=== PATIENT | male | born 1945 | race Caucasian/White ===

== ENCOUNTER 2016-12-09 11:37 | Inpatient (IN) | payer MEDICARE, OTHER ==
[2016-12-09] MEDS ORDERED: Sodium Chloride 0.9% 10 ML Syringe FLUSH PRN (11:50)
[2016-12-09] MEDS ORDERED: Sodium Chloride 0.9% 1,000 ML IV ONE (11:51)
--- NOTE | 2016-12-09 11:56 | EDM.PDOC ---
ED HPI GENERAL MEDICAL PROBLEM - General Chief Complaint: Abdominal Pain Stated Complaint: Abdominal Pain; Nausea; Vomiting Time Seen by Provider: 12/09/16 11:47 Source of Information: Reports: Patient, Family, RN, RN Notes Reviewed History Limitations: Reports: No Limitations - History of Present Illness INITIAL COMMENTS - FREE TEXT/NARRATIVE: Patient is brought to the ED at [facility] via POV with complaints of fevers , abdominal pain, N/V that started last evening. According to the patient's , he was complaining of right lower back pain last evening as well. Patient seemed to be very lethargic and less responsive and symptoms seems to get progressively worse since yesterday. Patient states his pain currently is located in the RLQ. Patient is severe with palpation. He denies any diarrhea. Patient states the pain radiates to the left chest region. Patient admits SOB with movement and pain. Right Abdominal Pain Score (Numeric/FACES): 8 - Related Data Allergies Allergy/AdvReac Type Severity Reaction Status Date / Time Penicillins Allergy Anaphylactic Verified 12/09/16 11:53 Shock Home Meds: Home Meds Eszopiclone [Lunesta] 1 mg PO BEDTIME 12/09/16 [History] Losartan/Hydrochlorothiazide [Losartan-HCTZ 100-25 MG] 1 each PO DAILY 12/09/16 [History] Montelukast [Singulair] 10 mg PO ONETIME 12/09/16 [History] Morphine [MS Contin] 15 mg PO BID 12/09/16 [History] Pramipexole [Mirapex] 1 mg PO BID 12/09/16 [History] Primidone [Primidone] 250 mg PO BID 12/09/16 [History] amLODIPine [Norvasc] 2.5 mg PO DAILY 12/09/16 [History] atorvaSTATin [Lipitor] 20 mg PO BEDTIME 12/09/16 [History] metFORMIN HCl [Metformin HCl] 500 mg PO DAILY 12/09/16 [History] oxyCODONE HCl [Oxycodone HCl] 10 mg PO QID PRN 12/09/16 [History] ED ROS GENERAL - Review of Systems Review Of Systems: See Below Constitutional: Reports: Fever, Chills, Weakness, Diaphoresis Respiratory: Reports: Shortness of Breath. Denies: Wheezing, Cough, Sputum Cardiovascular: Reports: Chest Pain (radiating from abdominal pain). Denies: Palpitations GI/Abdominal: Reports: Abdominal Pain, Nausea, Vomiting. Denies: Diarrhea Skin: Reports: Diaphoresis Neurological: Reports: Weakness. Denies: Dizziness, Headache, Numbness, Paresthesia, Tingling ED EXAM, GENERAL - Physical Exam Exam: See Below Exam Limited By: Altered Mental Status General Appearance: No Apparent Distress, Obtunded, Obese Neck: Supple Respiratory/Chest: No Respiratory Distress, Lungs Clear, Decreased Breath Sounds Cardiovascular: Normal Peripheral Pulses, Tachycardia Peripheral Pulses: 2+: Radial (L), Radial (R) GI/Abdominal: Rigid, Rebound, Tender, Abnormal Bowel Sounds (hypoactive X4) Extremities: Slow Capillary Refill, Pallor Neurological: Inattentive, Slow to Respond Skin Exam: Other (cool extremities) EKG INTERPRETATION EKG Date: 12/09/16 Time: 11:44 Rhythm: NSR Rate (Beats/Min): 112 [place]: Normal P-Wave: Present QRS: Normal ST-T: Normal QT: Normal MO/PQ Interval: 0.17 Comparison: NA - No Prior EKG EKG Interpretation Comments: 1. Sinus Tachycardia 2. Pattern consistent with pulmonary disease 3. RVH 4. Inferior IL - probably old Course - Vital Signs Last Recorded V/S: Last Vital Signs Temp 38.5 C H 12/09/16 13:25 Pulse 116 H 12/09/16 13:25 Resp 24 H 12/09/16 13:25 BP 171/103 H 12/09/16 13:25 Pulse Ox 96 12/09/16 13:25 - Orders/Labs/Meds Orders: Active Orders 24 hr Category Date Time Status Admission Status [Patient Status] [ADT] Routine ADT 12/09/16 14:58 Ordered EKG 12 Lead [EKG Documentation Completion] [RC] STAT Care 12/09/16 11:50 Active Insert Roman Catheter [Insert Urinary Catheter] [OM.PC] Care 12/09/16 12:45 Ordered Routine Urinary Catheter Assessment [RC] ASDIRECTED Care 12/09/16 12:39 Active Chest Abdomen Pelvis w Cont [CT] Routine Exams 12/09/16 12:45 Taken CULTURE BLOOD [BC] Stat Lab 12/09/16 12:15 Results CULTURE BLOOD [BC] Stat Lab 12/09/16 12:31 Received OPIATES 9 DRUG CONF LC-MS/MS Stat Lab 12/09/16 12:36 Received PAIN MANAGEMENT TARYN CONFIRM Stat Lab 12/09/16 12:36 Received Levofloxacin/Dextrose 5%-Water [Levaquin in D5W 750 MG/ Med 12/09/16 15:00 Ordered 150 ML] 750 mg Premix Bag 1 bag IV Q24H Sodium Chloride 0.9% [Normal Saline] 1,000 ml Med 12/09/16 14:45 Active IV ASDIRECTED Sodium Chloride 0.9% [Saline Flush] Med 12/09/16 11:50 Active 10 ml FLUSH ASDIRECTED PRN Blood Culture x2 Reflex Set [OM.PC] Stat Oth 12/09/16 11:49 Ordered Peripheral IV Insertion Adult [OM.PC] Routine Oth 12/09/16 11:50 Ordered Medication Orders Sodium Chloride (Normal Saline) 1,000 mls @ 100 mls/hr IV ASDIRECTED SARMAD Last Admin: 12/09/16 14:34 Dose: 100 mls/hr Levofloxacin/Dextrose 750 mg/ (Premix) 150 mls @ 100 mls/hr IV Q24H SARMAD Sodium Chloride (Saline Flush) 10 ml FLUSH ASDIRECTED PRN PRN Reason: Keep Vein Open Labs: Laboratory Tests 12/09/16 12/09/16 12/09/16 Range/Units 12:06 12:15 12:15 WBC 21.6 H* (4.0-10.0) x10^3/uL RBC 5.74 (4.5-6.0) x10^6/uL Hgb 17.1 (14.0-18.0) g/dL Hct 48.3 (40.0-52.0) % MCV 84.1 (78.0-93.0) fL MCH 29.8 (26.0-32.0) pg MCHC 35.4 (32.0-36.0) g/dL RDW Coeff of Andrzej 15.6 H (10.0-15.0) % Plt Count 270 (130-400) x10^3/uL Add Manual Diff Yes Neutrophils % (Manual) 83 H (50-80) % Lymphocytes % (Manual) 8 L (25-50) % Monocytes % (Manual) 9 (2-11) % Toxic Granulation 1+ slight H Platelet Estimate Adequate Anisocytosis Rare Rouleaux Rare POC ABG pH 7.465 H (7.35-7.45) POC ABG pCO2 34 L (35-45) mmHG POC ABG pO2 47 L* (80-105) mmHG POC ABG HCO3 24 (22-26) mmol/L POC ABG Total CO2 25 (23-27) mmol/L POC ABG O2 Sat 86 L (95-98) % POC ABG Base Excess 0 (-2-3) mmol/L POC FiO2 0.21 Sodium 138 (136-145) mmol/L Potassium 3.8 (3.5-5.1) mmol/L Chloride 98 (98-107) mmol/L Carbon Dioxide 30 (21-32) mmol/L BUN 12 (7-18) mg/dL Creatinine 1.2 (0.70-1.30) mg/dL Est Cr Clr Drug Dosing 61.88 mL/min Estimated GFR (MDRD) > 60 Glucose 173 H (74-106) mg/dL Lactic Acid (0.4-2.0) mmol/L Calcium 9.3 (8.5-10.1) mg/dL Corrected Calcium 9.30 (8.5-10.1) mg/dL Total Bilirubin 0.6 (0.2-1.0) mg/dL AST 16 (15-37) U/L ALT 28 (16-63) U/L Alkaline Phosphatase 101 (46-116) U/L Creatine Kinase 106 (39-308) U/L Creatine Kinase Index 2.0 (0.0-4.0) % CK-MB (CK-2) 2.1 (0.0-3.6) ng/mL Troponin I 0.021 (<=0.056) ng/mL C-Reactive Protein 3.0 H (<=0.9) mg/dL Total Protein 8.5 H (6.4-8.2) g/dL Albumin 4.0 (3.4-5.0) g/dL Globulin 4.5 Albumin/Globulin Ratio 0.89 Amylase 26 (25-115) U/L Lipase 115 (73-393) U/L POC Result Comm Called critical res Urine Color (YELLOW) Urine Appearance (CLEAR) Urine pH (5.0-8.0) Ur Specific [place] Urine Protein (NEGATIVE) mg/dL Urine Glucose (UA) (NEGATIVE) mg/dL Urine Ketones (NEGATIVE) mg/dL Urine Occult Blood (NEGATIVE) Urine Nitrite (NEGATIVE) Urine Bilirubin (NEGATIVE) Urine Urobilinogen (0.2) EU/dL Ur Leukocyte Esterase (NEGATIVE) Urine RBC (NOT SEEN) /HPF Urine WBC (NOT SEEN) /HPF Ur Squamous Epith Cells (NEGATIVE) /HPF Urine Bacteria (NEGATIVE) /HPF Urine Mucus (NEGATIVE) /LPF Urine Opiates Screen (NEAGTIVE) Ur Buprenorphine Scrn (NEGATIVE) Ur Oxycodone Screen (NEGATIVE) Urine Methadone Screen (NEGATIVE) Ur Barbiturates Screen (NEGATIVE) Ur Tricyclics Screen (NEGATIVE) Ur Amphetamine Screen (NEGATIVE) U Methamphetamines Scrn (NEGATIVE) Urine MDMA Screen (NEGATIVE) U Benzodiazepines Scrn (NEGATIVE) U Cocaine Metab Screen (NEGATIVE) U Marijuana (THC) Screen (NEGATIVE) 12/09/16 12/09/16 12/09/16 Range/Units 12:15 12:36 12:36 WBC (4.0-10.0) x10^3/uL RBC (4.5-6.0) x10^6/uL Hgb (14.0-18.0) g/dL Hct (40.0-52.0) % MCV (78.0-93.0) fL MCH (26.0-32.0) pg MCHC (32.0-36.0) g/dL RDW Coeff of Andrzej (10.0-15.0) % Plt Count (130-400) x10^3/uL Add Manual Diff Neutrophils % (Manual) (50-80) % Lymphocytes % (Manual) (25-50) % Monocytes % (Manual) (2-11) % Toxic Granulation Platelet Estimate Anisocytosis Rouleaux POC ABG pH (7.35-7.45) POC ABG pCO2 (35-45) mmHG POC ABG pO2 (80-105) mmHG POC ABG HCO3 (22-26) mmol/L POC ABG Total CO2 (23-27) mmol/L POC ABG O2 Sat (95-98) % POC ABG Base Excess (-2-3) mmol/L POC FiO2 Sodium (136-145) mmol/L Potassium (3.5-5.1) mmol/L Chloride (98-107) mmol/L Carbon Dioxide (21-32) mmol/L BUN (7-18) mg/dL Creatinine (0.70-1.30) mg/dL Est Cr Clr Drug Dosing mL/min Estimated GFR (MDRD) Glucose (74-106) mg/dL Lactic Acid 3.1 H (0.4-2.0) mmol/L Calcium (8.5-10.1) mg/dL Corrected Calcium (8.5-10.1) mg/dL Total Bilirubin (0.2-1.0) mg/dL AST (15-37) U/L ALT (16-63) U/L Alkaline Phosphatase (46-116) U/L Creatine Kinase (39-308) U/L Creatine Kinase Index (0.0-4.0) % CK-MB (CK-2) (0.0-3.6) ng/mL Troponin I (<=0.056) ng/mL C-Reactive Protein (<=0.9) mg/dL Total Protein (6.4-8.2) g/dL Albumin (3.4-5.0) g/dL Globulin Albumin/Globulin Ratio Amylase (25-115) U/L Lipase (73-393) U/L POC Result Comm Urine Color Dark yellow H (YELLOW) Urine Appearance Cloudy H (CLEAR) Urine pH 7.0 (5.0-8.0) Ur Specific [place] 1.020 Urine Protein 100 H (NEGATIVE) mg/dL Urine Glucose (UA) Negative (NEGATIVE) mg/dL Urine Ketones Negative (NEGATIVE) mg/dL Urine Occult Blood Small H (NEGATIVE) Urine Nitrite Negative (NEGATIVE) Urine Bilirubin Small H (NEGATIVE) Urine Urobilinogen 1.0 (0.2) EU/dL Ur Leukocyte Esterase Negative (NEGATIVE) Urine RBC 5-10 H (NOT SEEN) /HPF Urine WBC 0-5 (NOT SEEN) /HPF Ur Squamous Epith Cells Rare (NEGATIVE) /HPF Urine Bacteria Not seen (NEGATIVE) /HPF Urine Mucus Moderate H (NEGATIVE) /LPF Urine Opiates Screen Positive H (NEAGTIVE) Ur Buprenorphine Scrn Negative (NEGATIVE) Ur Oxycodone Screen Negative (NEGATIVE) Urine Methadone Screen Negative (NEGATIVE) Ur Barbiturates Screen Positive H (NEGATIVE) Ur Tricyclics Screen Negative (NEGATIVE) Ur Amphetamine Screen Negative (NEGATIVE) U Methamphetamines Scrn Negative (NEGATIVE) Urine MDMA Screen Negative (NEGATIVE) U Benzodiazepines Scrn Negative (NEGATIVE) U Cocaine Metab Screen Negative (NEGATIVE) U Marijuana (THC) Screen Negative (NEGATIVE) Meds: Medications Generic Name Dose Route Start Last Admin Trade Name Freq PRN Reason Stop Dose Admin Sodium Chloride 1,000 mls @ 100 mls/hr 12/09/16 14:45 12/09/16 14:34 Normal Saline IV 100 mls/hr ASDIRECTED SARMAD Administration Levofloxacin/Dextrose 750 mg/ 150 mls @ 100 mls/hr 12/09/16 15:00 Premix IV Q24H SARMAD Sodium Chloride 10 ml 12/09/16 11:50 Saline Flush FLUSH ASDIRECTED PRN Keep Vein Open Discontinued Medications Generic Name Dose Route Start Last Admin Trade Name Freq PRN Reason Stop Dose Admin Sodium Chloride 1,000 mls @ 999 mls/hr 12/09/16 11:51 12/09/16 12:13 Normal Saline IV 12/09/16 12:51 999 mls/hr ONETIME ONE Administration Sodium Chloride 100 mls @ 3 mls/sec 12/09/16 12:51 12/09/16 13:22 Normal Saline IV 12/09/16 12:52 3 mls/sec ONETIME ONE Administration Vancomycin HCl 2 gm/ Sodium 500 mls @ 250 mls/hr 12/09/16 12:58 12/09/16 13: 20 Chloride IV 12/09/16 14:57 250 mls/hr ONETIME ONE Administration Iopamidol 100 ml 12/09/16 12:50 12/09/16 13:21 Isovue-300 (61%) IVPUSH 12/09/16 12:51 100 ml ONETIME ONE Administration - Radiology Interpretation Free Text/Narrative:: 1. Significant distention of gallbladder 2. Question of Cholecystitis 3. No obvious PE 4. Infiltrates posterior segment right upper lobe and basal segment right lower lobe See scanned report in EMR CT Results Date: 12/09/16 CT Results Time: 14:31 Departure - Departure Time of Disposition: 15:05 Disposition: Admitted As Inpatient 68 Condition: Good Clinical Impression: Community acquired pneumonia, Hypoxia, Leukocytosis, Essential hypertension - Discharge Information ED Communication - ED Communication Date/Time Date: 12/09/16 Time Called: 14:47 - Discussed Case With (1) Discussed Case With (1): Admitting Provider Person/s Notified (1): Barbi Milian - Conversation Summary Admitting Provider Agreed to Patient's Admission: Yes - Problem List & Annotations (1) Community acquired pneumonia SNOMED Code(s): 335159923 Code(s): J18.9 - PNEUMONIA, UNSPECIFIED ORGANISM Status: Acute Priority: High Current Visit: Yes (2) Leukocytosis SNOMED Code(s): 042149511, 891518568 Code(s): D72.829 - ELEVATED WHITE BLOOD CELL COUNT, UNSPECIFIED Status: Acute Current Visit: Yes Qualifiers: Leukocytosis type: unspecified Qualified Code(s): D72.829 - Elevated white blood cell count, unspecified (3) Hypoxia SNOMED Code(s): 309016894, 176145961 Code(s): R09.02 - HYPOXEMIA Status: Acute Current Visit: Yes Onset Date : ~12/09/16 (4) Essential hypertension SNOMED Code(s): 14391211 Code(s): I10 - ESSENTIAL (PRIMARY) HYPERTENSION Status: Acute Current Visit: Yes - Problem List Review Problem List Initiated/Reviewed/Updated: Yes - My Orders Last 24 Hours: My Active Orders 12/09/16 11:49 Blood Culture x2 Reflex Set [OM.PC] Stat 12/09/16 11:50 EKG 12 Lead [EKG Documentation Completion] [RC] STAT Sodium Chloride 0.9% [Saline Flush] 10 ml FLUSH ASDIRECTED PRN Peripheral IV Insertion Adult [OM.PC] Routine 12/09/16 12:15 CULTURE BLOOD [BC] Stat 12/09/16 12:31 CULTURE BLOOD [BC] Stat 12/09/16 12:36 OPIATES 9 DRUG CONF LC-MS/MS Stat PAIN MANAGEMENT TARYN CONFIRM Stat 12/09/16 12:39 Urinary Catheter Assessment [RC] ASDIRECTED 12/09/16 12:45 Insert Roman Catheter [Insert Urinary Catheter] [OM.PC] Routine Chest Abdomen Pelvis w Cont [CT] Routine 12/09/16 14:45 Sodium Chloride 0.9% [Normal Saline] 1,000 ml IV ASDIRECTED 12/09/16 14:58 Admission Status [Patient Status] [ADT] Routine 12/09/16 15:00 Levofloxacin/Dextrose 5%-Water [Levaquin in D5W 750 MG/150 ML] 750 mg Premix Bag 1 bag IV Q24H - Assessment/Plan Admission H&P: Please use this note as an admission H&P Last 24 Hours: My Active Orders 12/09/16 11:49 Blood Culture x2 Reflex Set [OM.PC] Stat 12/09/16 11:50 EKG 12 Lead [EKG Documentation Completion] [RC] STAT Sodium Chloride 0.9% [Saline Flush] 10 ml FLUSH ASDIRECTED PRN Peripheral IV Insertion Adult [OM.PC] Routine 12/09/16 12:15 CULTURE BLOOD [BC] Stat 12/09/16 12:31 CULTURE BLOOD [BC] Stat 12/09/16 12:36 OPIATES 9 DRUG CONF LC-MS/MS Stat PAIN MANAGEMENT TARYN CONFIRM Stat 12/09/16 12:39 Urinary Catheter Assessment [RC] ASDIRECTED 12/09/16 12:45 Insert Roman Catheter [Insert Urinary Catheter] [OM.PC] Routine Chest Abdomen Pelvis w Cont [CT] Routine 12/09/16 14:45 Sodium Chloride 0.9% [Normal Saline] 1,000 ml IV ASDIRECTED 12/09/16 14:58 Admission Status [Patient Status] [ADT] Routine 12/09/16 15:00 Levofloxacin/Dextrose 5%-Water [Levaquin in D5W 750 MG/150 ML] 750 mg Premix Bag 1 bag IV Q24H
[2016-12-09] MEDS ORDERED: Iopamidol 612 MG/ML 100 ML Bottle IVPUSH ONE (12:50)
[2016-12-09] MEDS ORDERED: Sodium Chloride 0.9% 100 ML IV ONE (12:51)
[2016-12-09 12:56] LABS: CHLORIDE,CL 98 mmol/L (98-107); SODIUM,NA 138 mmol/L (136-145)
[2016-12-09] MEDS ORDERED: Vancomycin 2 GM in Sodium Chloride 0.9% 500 ML IV ONE (12:58)
[2016-12-09] MEDS: Sodium Chloride 0.9% 1,000 ML IV SCH (14:34)
[2016-12-09] MEDS: Levofloxacin/Dextrose 5%-Water 750 MG in Premix Bag 1 BAG IV SCH (15:50)
[2016-12-09] MEDS ORDERED: Acetaminophen 650 MG Supp RECTAL ONE (15:52)
[2016-12-09] MEDS ORDERED: Metoprolol Tartrate 5 MG/5 ML SDV IVPUSH ONE (15:52)
[2016-12-09] MEDS ORDERED: Promethazine 25 MG Tab PO PRN (15:56)
[2016-12-09] MEDS ORDERED: Promethazine 12.5 MG in Sodium Chloride 0.9% 100 ML IV PRN (15:56)
[2016-12-09] MEDS ORDERED: Pramipexole 0.5 MG Tab PO PRN (16:00)
[2016-12-09] MEDS ORDERED: Zolpidem 5 MG Tab PO PRN (16:00)
[2016-12-09] MEDS ORDERED: oxyCODONE 5 MG Tab PO PRN (16:15)
[2016-12-09] MEDS: metroNIDAZOLE/Normal Saline 500 MG in Premix Bag 1 BAG IV SCH (18:43)
[2016-12-09] MEDS: amLODIPine 2.5 MG Tab PO SCH (18:48)
[2016-12-09] MEDS: Losartan 50 MG Tab PO SCH (18:48)
[2016-12-09] MEDS ORDERED: Morphine 15 MG Tab.ER PO SCH (20:00)
[2016-12-09] MEDS: Insulin Aspart 100 Units/ML 3 ML Pen SUBCUT SCH (21:23)
[2016-12-09] MEDS: Metoprolol Tartrate 5 MG/5 ML SDV IVPUSH PRN (21:35)
--- NOTE | 2016-12-09 21:48 | HP ---
CHIEF COMPLAINT: Incoherent fever, vomiting. HISTORY OF PRESENT ILLNESS: This is a 71-year-old male who is from [place], traveled up here with his to help his daughter with a move. He had been coughing a lot over the past few days. He had been producing more sputum. His states he does normally cough a lot. He is a smoker. He is supposed to be on an inhaler, but they could not afford it. Then last night he began vomiting, he was having some left-sided back pain by his 's report. He has no history of kidney stones. Then this morning, he came to the ER, was found to have a 101.7 temperature. He was eating okay up until this point. This morning, because of the vomiting he did receive 50 mg of Phenergan which he has at home and morphine 15 mg which he is on chronically for back pain. The patient's gives most of the history as he was sleeping. He could wake up and answer simple questions like, do you have any pain, he said no until I began palpating his abdomen. Then he had significant pain, especially in the right upper quadrant. He has never had any abdominal surgeries. He has had pneumonia in the past, like back when he was in the service. His said he also had meningitis back when he was in the service. He is denying any headache today. He has had some neck pain over the last month with pain going into the left arm. PAST MEDICAL HISTORY: Otherwise, his past medical history includes obstructive sleep apnea, but he would not use his CPAP because he got some infections from it; possible coronary artery disease with reports of an angiogram by his a year ago, but she is not sure if any stents were placed; smoking; obesity; diabetes, on oral agents of metformin, it was unknown whether or not he has complications; chronic back pain with previous back surgery; essential hypertension; restless legs syndrome; insomnia. PAST SURGICAL HISTORY: Includes a right hip replacement about a year ago. Since then, he also had a right elbow surgery, sounds like it was for recurrent bursitis. SOCIAL HISTORY: The patient is , he lives in [place] with his . He is retired. He has been smoking pipes lately to get less inhalation. They deny any alcohol use. FAMILY HISTORY: Father of colon cancer. His mother had a stroke. He has a sister who is alive and well. REVIEW OF SYSTEMS: Really unobtainable from the patient. Please see HPI which I obtained the review of systems per his . ALLERGIES: Include penicillin, which is an anaphylactic reaction. MEDICATIONS: Losartan and HCTZ 100/25 one daily, Singulair 10 mg daily, Lipitor 20 mg at bedtime, metformin 500 mg daily, Lunesta 1 mg at bedtime, morphine 15 mg b.i.d., Mirapex 1 mg b.i.d., primidone 250 b.i.d., amlodipine 2.5 daily, oxycodone 10 mg 4 times a day as needed for pain. PHYSICAL EXAMINATION: Vital Signs: His stated weight was 113.3 kg. His temperature was up to 102.3 at 3:20 p.m., pulse 111, blood pressure 186/94, respiratory rate 24, O2 of 94 on 2 L. Initially, he was 86% on room air. General: He is in no acute distress. He is able to wake to loud verbal stimuli or some painful stimuli at times. He is able to answer yes or no. He is able to tell me which arm his neck pain goes into. He is able to tell me he does not have a headache. Heart: Regular rate and rhythm. S1, S2 without murmur. Lungs: Lung sounds are decreased throughout due to poor respiratory effort. I did not appreciate any wheezing. Abdomen: Distended. Significant tenderness in the right upper quadrant. He reports 10/10 pain. There is no rebound or guarding. There is also tenderness in the left lower quadrant. He has hypoactive bowel sounds. Extremities: Warm and dry. There are no rashes. There is no edema. Mental Status: He is alert. He is able to tell me that his is in the room. LABORATORY DATA: Lab work reviewed does show a white count of 21.6, hemoglobin 17.1, platelets 270. pH on ABG 7.46, CO2 of 34, pO2 of 47. Sodium 138, potassium 3.8, chloride 98, bicarb 30, BUN 12, creatinine 1.2, glucose 173. Lactic 3.1. Calcium 9.3. ALT and AST within normal range. CK 2.1. CRP 3. Albumin 4. Lipase normal, 115. UA catheterized specimen showed no leukocytes, but 5 to 10 RBCs. His toxicology was positive for opioids, negative for oxycodone, positive for barbiturates. CT report showed significant distention of the gallbladder, question of cholecystitis. No obvious pulmonary embolism, but infiltrates in the posterior segment of the right upper lobe and basal segment of the right lower lobe. No mention of diverticulitis made. No mention of kidney stones. There was a small amount of free fluid noted around the gallbladder with a slightly thickened wall. There was thickening of the wall of the urinary bladder noted as well. EKG was reviewed. Does show a sinus tachycardia with a probable right ventricular hypertrophy pattern, some question of an inferior myocardial infarction, however, no previous to compare to, just some micro type Q-waves noted in II, III, and aVF. There is some nonspecific ST changes in leads I, V5 and 6, but they are not consistent across all segments. ASSESSMENT AND PLAN: 1. Severe sepsis with fever, tachycardia, elevated lactic acid. Likely source is the pneumonia, multilobar. Other considerations as well as possible cholecystitis. 2. Abdominal pain, likely due to cholecystitis. 3. Diabetes. 4. Obstructive sleep apnea, untreated. 5. Acute hypoxic respiratory failure secondary to pneumonia with possible underlying chronic obstructive pulmonary disease although he is not wheezing currently. 6. Morbid obesity. 7. Somnolence. I think the patient's mentation is affected by his sepsis and fevers. We will give him some Tylenol, give him fluids, try to get his fever under better control. 8. Essential hypertension, poorly controlled. He is unable to take his pills today due to vomiting. We will try to give them to him again, but I will also give him some IV Lopressor 2.5 one time and we will repeat that if needed for systolic blood pressures over 180. 9. Chronic pain, on morphine and oxycodone. We will continue them, but hold if he is overly sedated. 10.Deep venous thrombosis prophylaxis. He will be placed on Lovenox. 11.Neck pain with left arm pain. This has been an ongoing problem as an outpatient. It can be further worked up. However, if severe pain continues, may need to have imaging. Could be another source of infection. The plan at this point: Blood cultures have been done. We will obtain sputum cultures. We are treating for causes of infection. He already got vancomycin in the ER, 2 g. We will schedule 1500 twice daily. I have added Levaquin which will cover for gram negatives for the pneumonia as well as help with the cholecystitis, and I will order IV Flagyl as well. We will keep him on telemetry, continuous pulse oximetry. We will continue oxygen. If needed, I will start nebulizers and steroids, however, at this point I see no indication for that. Discussed with him and his if he were to become hypotensive or worse, we transfer to [place] for ICU care. We will repeat his lactic acid in 6 hours. We will repeat all lab work again in the morning. We will continue him on some IV fluids. We will give him a diabetic diet as tolerated if he is able to eat. We will order a low-dose sliding scale insulin for him as well and hold his metformin. The plan is above. The patient's overall condition is guarded. Discussed with Gold Rice also in the ER if he has any urgent deterioration, we will transfer him to a higher level of care. ROYALA: 12/09/2016 16:46:02 MODL: 12/09/2016 21:42:50 /[id number]
[2016-12-10] MEDS: Primidone 50 MG Tab PO SCH ×3 (00:52→23:56)
[2016-12-10] MEDS: metroNIDAZOLE/Normal Saline 500 MG in Premix Bag 1 BAG IV SCH ×3 (01:00→17:32)
[2016-12-10] MEDS: Metoprolol Tartrate 5 MG/5 ML SDV IVPUSH PRN (02:12)
[2016-12-10] MEDS: HYDROmorphone 1 MG/ML Syringe IVPUSH PRN ×5 (02:53→21:47)
[2016-12-10] MEDS: amLODIPine 2.5 MG Tab PO SCH ×2 (04:30→07:27)
[2016-12-10] MEDS: Losartan 50 MG Tab PO SCH ×2 (04:31→07:26)
[2016-12-10] MEDS: Acetaminophen 500 MG Tab PO PRN ×2 (04:31→12:15)
[2016-12-10] MEDS: Sodium Chloride 0.9% 1,000 ML IV SCH (06:04)
[2016-12-10] MEDS: Insulin Aspart 100 Units/ML 3 ML Pen SUBCUT SCH ×3 (07:52→19:25)
[2016-12-10] MEDS: Enoxaparin 40 MG/0.4 ML Syringe SUBCUT SCH (07:52)
[2016-12-10 08:23] LABS: CHLORIDE,CL 101 mmol/L (98-107); SODIUM,NA 138 mmol/L (136-145)
[2016-12-10] MEDS ORDERED: Metoprolol Succinate 25 MG Tab.ER PO SCH (09:00)
[2016-12-10] MEDS: oxyCODONE ER 10 MG TAB.ER PO SCH ×2 (09:44→20:15)
--- NOTE | 2016-12-10 09:50 | PN ---
Progress Note for MARIANNA KNIGHT Date: 12/10/2016 Room #: VM.215 SUBJECTIVE: This is hospital day #2 for a 71-year-old admitted yesterday with severe sepsis with altered mentation, pneumonia, and cholecystitis. The patient continues to have right upper quadrant pain. He states it is worse when people touch it, otherwise, most of his pain is in his back which he has had for a long time. He has not received his oral morphine here due to concerns for causing more cholecystitis issues. He did receive his dose of IV Dilaudid at about 3:00 a.m. to help with the pain. He otherwise had elevated blood pressures during the night and had received IV Lopressor. When I was called at 4:00 a.m., I gave the okay to give his morning pills early. Blood pressure this morning came down nicely to 148/87. He still remains tachycardic, but he has been eating. He ate some toast. Again, he is in pain. He has been afebrile since after admission, 102.1 was his T-max at 3:20, then he was 100.6 at 4:00 p.m., and other than 99 temperature so far he has not had any major fevers through the night. He is still coughing. He denies feeling short of breath. He denies any neck pain today. He denies any nausea. OBJECTIVE: Vital Signs: His temperature is 98.6; pulse 108; blood pressure again 148/87, but high reading at 8:00 a.m. was 190/104; respiratory rate 16; and O2 is 91% on 2 L. He did drop to 79% during the night while sleeping and was bumped up to 3 L briefly. General: He is in no acute distress, but does appear to have some sweating. He says he is warm. Heart: Regular rate and rhythm. S1, S2 without murmur. Lungs: Sounds are showing good air entry throughout. I was not able to appreciate any crackles on exam. Abdomen: Mildly distended. Positive bowel sounds. There is tenderness noted in the right upper quadrant without rebound or guarding. Lower quadrants are not tender. Mental Status: He is alert. He is aware he is in the hospital. He does not remember which city he is in. I asked him where his daughter worked, he was able to tell me that her works but it was almost like he was not tracking to remember why he was here. His says they came to help the daughter move. Extremities: Warm and dry. No edema. : Roman is in place. There is some dark tinged urine. He did have some slight blood in his UA yesterday, 5-10 rbc's, it was felt may be due to a traumatic catheterization. LABORATORY DATA: Lab work reviewed does show his white count to still be elevated at 20.7, it was 21.6 yesterday. Neutrophils went up from 83 to 88. Hemoglobin 17.4, platelets 226, sodium 138, potassium 3.6, chloride 101, bicarb 27, BUN 9, creatinine 1.1. Glucose 167. Lactic acid was elevated at 3.1 on admission, went down to 1.7 after 6 hours. ALT and AST both normal. Bilirubin normal. Alkaline phosphatase is normal at 84. Albumin went down slightly to 3.3. ASSESSMENT: 1. Severe sepsis secondary to community-acquired pneumonia, multilobar. We are still awaiting a sputum culture. Fevers have improved. He is still tachycardic, which could be due to pain. Leukocytosis is staying about the same so far. 2. Abdominal pain secondary to cholecystitis. Discussed personally with the radiologist. His gallbladder is about 5 x 10 cm, distended, no gallstones noted. There is some concern for acalculous cholecystitis for the patient. We will continue to monitor closely. Overall, his condition seems to be improving. We will try to get an ultrasound tomorrow. If symptoms worsen or if we are unable, we will transfer to [place], which was discussed with his yesterday. 3. Type 2 diabetes with unspecified complications, not on long-term insulin use. Blood sugars seem to be okay. We are holding his metformin. We will give him insulin if needed. 4. Obstructive sleep apnea, probably cause some of the hypoxia overnight. 5. Acute hypoxic respiratory failure secondary to pneumonia. He is stable on 2-3 L of oxygen right now. We will repeat a chest x-ray this morning. 6. Somnolence due to severe sepsis. This seems to be improving. He is mentating better today. We are going to go ahead and take out the Roman. He denies any trouble with BPH or urinary problems. 7. Chronic back pain. His morphine was held. I think some of his symptoms this morning with sweating is related to that. We will switch him over to OxyContin 10 b.i.d. 8. Essential hypertension, poorly controlled. He was given his losartan and amlodipine early this morning. We held off on the hydrochlorothiazide. We will go ahead and schedule oral Toprol doses if needed. For now, he has p.r.n. Lopressor available. 9. Deep nahum thrombosis prophylaxis. He is on Lovenox. 10.Neck and left arm pain. He is denying that today. He has good neck range of motion. PLAN: At this point, the patient will continue acute cares. We will continue the IV vancomycin for coverage of possible Enterococcus given concern for cholecystitis and also for his pneumonia for gram-positive coverage. We will continue IV Levaquin again for both the pneumonia and the cholecystitis and IV Flagyl, which would be for anaerobes for possible cholecystitis. We will repeat all blood work tomorrow. Blood cultures have been done and pending. We will continue to try to get a sputum culture. We will continue him with incentive spirometry. We will remove the Roman. We will get him up in the chair today. He will continue eating on a diabetic diet if he is able. If he is unable to eat or he is vomiting or more severe abdominal pain or condition worsens, we will transfer to [place] as he may require cholecystotomy or cholecystectomy. He is a code level 1. For DVT prophylaxis, he is on Lovenox. MKA: 12/10/2016 09:15:06 MODL: 12/10/2016 09:42:18 /[id number]
[2016-12-10] MEDS: Levofloxacin/Dextrose 5%-Water 750 MG in Premix Bag 1 BAG IV SCH (15:23)
[2016-12-11] MEDS: metroNIDAZOLE/Normal Saline 500 MG in Premix Bag 1 BAG IV SCH ×2 (00:50→07:34)
[2016-12-11 07:32] LABS: CHLORIDE,CL 101 mmol/L (98-107); SODIUM,NA 135 mmol/L (136-145)
[2016-12-11] MEDS: oxyCODONE ER 10 MG TAB.ER PO SCH (07:39)
[2016-12-11] MEDS: Losartan 50 MG Tab PO SCH (07:40)
[2016-12-11] MEDS: amLODIPine 2.5 MG Tab PO SCH (07:40)
[2016-12-11] MEDS: Enoxaparin 40 MG/0.4 ML Syringe SUBCUT SCH (07:41)
[2016-12-11] MEDS: Primidone 50 MG Tab PO SCH (07:42)
[2016-12-11] MEDS: Insulin Aspart 100 Units/ML 3 ML Pen SUBCUT SCH ×2 (07:42→11:22)
[2016-12-11] MEDS ORDERED: NS + KCl 20mEq/L 1,000 ML IV SCH (08:30)
--- NOTE | 2016-12-11 09:28 | PN ---
Progress Note for MARIANNA KNIGHT Date: 12/11/2016 Room #: VM.215 SUBJECTIVE: This is hospital day #3 for a 71-year-old, admitted with a multilobar pneumonia and right upper quadrant pain with cholecystitis. The patient continues to have significant right upper quadrant pain, especially with movement or exam. He did receive IV Dilaudid last evening, but he did receive one of his p.r.n. oxycodone during the night. He tells me he feels drugged. Otherwise, he did not receive any Ambien for sleep. He is not having any trouble breathing, but admits he still has a little bit of a cough. He has been afebrile since yesterday afternoon. He did spike a 101.4 temperature around noon. Otherwise, he continues to be tachycardic with rates in the 110s. He denies any knowledge of tachycardia, but tells me to ask his . Otherwise, white count continues to be elevated. I had discussed the case yesterday with the surgeon. Liver function testing was normal. The CT was reviewed. We will try for ultrasound today, but there were no urgent indications for surgery. OBJECTIVE: Vital Signs: His temperature is 99.4, his pulse 107, blood pressure 123/71, respiratory rate 20, O2 95% on 3 L. General: He is in no acute distress. Heart: Regular rate and rhythm. Lungs: Lung sounds are clear to auscultation with crackles noted in the right base. I had noted them yesterday afternoon, also when he was sitting up more. Abdomen: Distended. He does have positive bowel sounds. There is generalized tenderness, but no guarding. He has the most amount of tenderness in the right upper quadrant going down into the right mid axillary area. Mental Status: He is alert, he is aware he is in the hospital. Extremities: Warm and dry. No edema. LABORATORY DATA: Lab work reviewed. White count remains 20.8, it was 20.7 yesterday; platelets are 250; hemoglobin 16.8. He has 82% neutrophils, which has decreased, 3% bands. Sodium 135, potassium 3.6, chloride 101, bicarb 22, BUN 11, creatinine 1, glucose 168, albumin 3, ALT and AST normal. Alkaline phosphatase 88, bilirubin again 0.9. ASSESSMENT: 1. Severe sepsis secondary to community-acquired pneumonia, multilobar. Sputum cultures have not been obtained, although we have tried. Blood cultures are negative. We will discontinue the vancomycin and keep him on Levaquin. Leukocytosis is staying about the same and he is having still some mild fevers. Repeat x-ray yesterday was showing the right basilar infiltrate. 2. Abdominal pain, secondary to cholecystitis. He is planning on having an ultrasound done today. Depending on how that looks, we may consider transfer for surgery either to [place] or [place]. 3. Type 2 diabetes with unspecified complications, not on long-term insulin use. His metformin is on hold. He is requiring some small doses of insulin, but all blood sugars have been under 200. 4. Obstructive sleep apnea. He is noncompliant with treatment. 5. Acute hypoxic respiratory failure secondary to pneumonia. He continues on 2-3 L of oxygen. 6. Somnolence secondary to severe sepsis, this has resolved. He does feel a little bit drugged from receiving pain medications. We will discontinue the IV Dilaudid. He is eating, so he can take oxycodone. 7. Chronic back pain. I switched his morphine to OxyContin, adjusted dosing 10 b.i.d. due to gallbladder issues. 8. Essential hypertension, now under good control. Hydrochlorothiazide has been on hold. He is on losartan at a lower dose and amlodipine same dose. 9. Deep vein thrombosis prophylaxis, on Lovenox. 10.Neck and left arm pain. He really has not brought this up now since admission. This had been going on for about 4 weeks prior to admission. Also noted, the patient has not been on aspirin. I am going to be obtaining his medical records today from his provider in [place]. Otherwise, he has not had any nausea or vomiting and he is tolerating some diet. PLAN: At this point, the patient will continue acute cares. We will discontinue the IV vancomycin given the negative blood cultures. We will continue the Levaquin and Flagyl, which would cover for both pneumonia and cholecystitis. We will repeat lab work again in the morning with CBC and CMP. We will work on getting an ultrasound today and transferring for surgery if needed. Otherwise, we will continue him on incentive spirometry. We will discontinue the Dilaudid and use oral pain medications. We will have him up and working with therapies. For DVT prophylaxis, he will continue on Lovenox. Code level 1. MKA: 12/11/2016 08:36:33 MODL: 12/11/2016 09:17:45 /[id number]
--- NOTE | 2016-12-11 11:54 | PCM.DCSUM1 ---
Discharge Summary - Hospital Course Free Text/Narrative:: Patient admitted on 12/09 with abdominal pain and back pain. He was obtunded and found to have a fever of over 102 and WBC of 20,000. CT was showing possible cholecysitis. Abdominal pain continued despite broad spectrum ABX with Vanco, Levaquin, and Flagyl. He was also found to have a RUL and right basilar pneumonia by CT with follow up CXR showing the pneumonia but no signficant worsening. He was requiring 3 L of oxygen but sats remained above 90 % except at night although he has untreated sleep apnea. His last fever was 101.4 at noon yesterday. US done today confirmed the choleycstitis with calculus and a 5 x 1.8 cm pericholecystic fluid collection. Discussion was had with the patient and his and transfer was arranged to [facility] at their request with Dr. Tolbert the accepting physician. - Discharge Data Discharge Date: 12/11/16 Discharge Disposition: DC/Tfer to Acute Hospital 02 Condition: Good - Patient Summary/Data Consults: Consultations 12/11/16 08:36 PT Evaluation and Treatment [CONS] Routine - Patient Instructions Diet: NPO - Discharge Plan Home Medications: Home Meds Eszopiclone [Lunesta] 1 mg PO BEDTIME 12/09/16 [History] Losartan/Hydrochlorothiazide [Losartan-HCTZ 100-25 MG] 1 each PO DAILY 12/09/16 [History] Montelukast [Singulair] 10 mg PO ONETIME 12/09/16 [History] Morphine [MS Contin] 15 mg PO BID 12/09/16 [History] Pramipexole [Mirapex] 1 mg PO BID 12/09/16 [History] Primidone [Primidone] 250 mg PO BID 12/09/16 [History] amLODIPine [Norvasc] 2.5 mg PO DAILY 12/09/16 [History] atorvaSTATin [Lipitor] 20 mg PO BEDTIME 12/09/16 [History] metFORMIN HCl [Metformin HCl] 500 mg PO DAILY 12/09/16 [History] oxyCODONE HCl [Oxycodone HCl] 10 mg PO QID PRN 12/09/16 [History] Forms: ED Department Discharge, Interfacility Transfer EMTALA Referrals: PCP,Not In Area [Primary Care Provider] - - Discharge Summary/Plan Comment DC Time >30 min.: Yes Discharge Summary/Plan Comment: To [facility] by Ambulance for possibly cholecystectomy. Accepting surgeon is Dr. Tolbert - Patient Data Vitals - Most Recent: Last Vital Signs Temp 97.8 F 12/11/16 10:00 Pulse 101 H 12/11/16 10:00 Resp 20 12/11/16 10:00 BP 117/73 12/11/16 10:00 Pulse Ox 95 12/11/16 10:00 Weight - Most Recent: 113.398 kg I&O - Last 24 hours: Intake & Output 12/10/16 12/11/16 12/11/16 22:59 06:59 14:59 Intake Total 875 950 240 Output Total 975 1400 Balance -100 -450 240 Lab Results - Last 24 hrs: Laboratory Results - last 24 hr 12/10/16 12/10/16 12/11/16 Range/Units 17:02 20:18 05:54 WBC (4.0-10.0) x10^3/uL RBC (4.5-6.0) x10^6/uL Hgb (14.0-18.0) g/dL Hct (40.0-52.0) % MCV (78.0-93.0) fL MCH (26.0-32.0) pg MCHC (32.0-36.0) g/dL RDW Coeff of Andrzej (10.0-15.0) % Plt Count (130-400) x10^3/uL Add Manual Diff Neutrophils % (Manual) (50-80) % Band Neutrophils % (0-6) % Lymphocytes % (Manual) (25-50) % Platelet Estimate Sodium (136-145) mmol/L Potassium (3.5-5.1) mmol/L Chloride (98-107) mmol/L Carbon Dioxide (21-32) mmol/L BUN (7-18) mg/dL Creatinine (0.70-1.30) mg/dL Est Cr Clr Drug Dosing mL/min Estimated GFR (MDRD) Glucose (74-106) mg/dL POC Glucose 175 H 177 H 168 H (74-106) mg/dL Calcium (8.5-10.1) mg/dL Corrected Calcium (8.5-10.1) mg/dL Total Bilirubin (0.2-1.0) mg/dL AST (15-37) U/L ALT (16-63) U/L Alkaline Phosphatase (46-116) U/L Total Protein (6.4-8.2) g/dL Albumin (3.4-5.0) g/dL Globulin Albumin/Globulin Ratio 12/11/16 12/11/16 12/11/16 Range/Units 06:20 06:20 11:19 WBC 20.8 H* (4.0-10.0) x10^3/uL RBC 5.70 (4.5-6.0) x10^6/uL Hgb 16.8 (14.0-18.0) g/dL Hct 48.3 (40.0-52.0) % MCV 84.7 (78.0-93.0) fL MCH 29.5 (26.0-32.0) pg MCHC 34.8 (32.0-36.0) g/dL RDW Coeff of Andrzej 15.8 H (10.0-15.0) % Plt Count 250 (130-400) x10^3/uL Add Manual Diff Yes Neutrophils % (Manual) 82 H (50-80) % Band Neutrophils % 3 (0-6) % Lymphocytes % (Manual) 15 L (25-50) % Platelet Estimate Adequate Sodium 135 L (136-145) mmol/L Potassium 3.6 (3.5-5.1) mmol/L Chloride 101 (98-107) mmol/L Carbon Dioxide 22 (21-32) mmol/L BUN 11 (7-18) mg/dL Creatinine 1.0 (0.70-1.30) mg/dL Est Cr Clr Drug Dosing 74.25 mL/min Estimated GFR (MDRD) > 60 Glucose 164 H (74-106) mg/dL POC Glucose 152 H (74-106) mg/dL Calcium 8.3 L (8.5-10.1) mg/dL Corrected Calcium 9.10 (8.5-10.1) mg/dL Total Bilirubin 0.9 (0.2-1.0) mg/dL AST 18 (15-37) U/L ALT 39 (16-63) U/L Alkaline Phosphatase 88 (46-116) U/L Total Protein 7.6 (6.4-8.2) g/dL Albumin 3.0 L (3.4-5.0) g/dL Globulin 4.6 Albumin/Globulin Ratio 0.65 Med Orders - Current: Current Medications Acetaminophen (Tylenol Extra Strength) 500 mg PO Q4H PRN PRN Reason: Fever Last Admin: 12/10/16 12:15 Dose: 500 mg Amlodipine Besylate (Norvasc) 2.5 mg PO DAILY [facility] Last Admin: 12/11/16 07:40 Dose: 2.5 mg Enoxaparin Sodium (Lovenox) 40 mg SUBCUT DAILY [facility] Last Admin: 12/11/16 07:41 Dose: 40 mg Levofloxacin/Dextrose 750 mg/ (Premix) 150 mls @ 100 mls/hr IV Q24H [facility] Last Admin: 12/10/16 15:23 Dose: 100 mls/hr Promethazine HCl 12.5 mg/ (Sodium Chloride) 100.5 mls @ 200 mls/hr IV Q6H PRN PRN Reason: Nausea/Vomiting Metronidazole 500 mg/ Premix 100 mls @ 100 mls/hr IV Q8H [facility] Last Admin: 12/11/16 07:34 Dose: 100 mls/hr Potassium Chloride/Sodium Chloride (Normal Saline With 20 Meq Kcl) 1,000 mls @ 100 mls/hr IV ASDIRECTED [facility] Last Admin: 12/11/16 09:26 Dose: 100 mls/hr Insulin Aspart (Novolog) 1 unit SUBCUT TIDMEALS SARMAD PRN Reason: Protocol Last Admin: 12/11/16 11:22 Dose: 1 units Losartan Potassium (Cozaar) 50 mg PO DAILY [facility] Last Admin: 12/11/16 07:40 Dose: 50 mg Metoprolol Tartrate (Lopressor) 2.5 mg IVPUSH Q4H PRN PRN Reason: Hypertension Last Admin: 12/10/16 02:12 Dose: 2.5 mg Oxycodone HCl (Oxycodone) 10 mg PO QID PRN PRN Reason: PAIN Last Admin: 12/11/16 02:42 Dose: 10 mg Oxycodone HCl (Oxycontin) 10 mg PO Q12HR [facility] Last Admin: 12/11/16 07:39 Dose: 10 mg Pramipexole Dihydrochloride (Mirapex) 1 mg PO BID PRN PRN Reason: Other Primidone (Mysoline) 250 mg PO BID [facility] Last Admin: 12/11/16 07:42 Dose: 250 mg Promethazine HCl (Phenergan) 25 mg PO Q6H PRN PRN Reason: nausea, able to take PO Sodium Chloride (Saline Flush) 10 ml FLUSH ASDIRECTED PRN PRN Reason: Keep Vein Open Zolpidem Tartrate (Ambien) 2.5 mg PO BEDTIME PRN PRN Reason: Insomnia Discontinued Medications Acetaminophen (Tylenol) 650 mg RECTAL NOW ONE Stop: 12/09/16 15:53 Last Admin: 12/09/16 16:11 Dose: 650 mg Hydromorphone HCl (Dilaudid) 0.5 mg IVPUSH Q2H PRN PRN Reason: Pain (severe 7-10) Last Admin: 12/10/16 21:47 Dose: 0.5 mg Sodium Chloride (Normal Saline) 1,000 mls @ 999 mls/hr IV ONETIME ONE Stop: 12/09/16 12:51 Last Admin: 12/09/16 12:13 Dose: 999 mls/hr Sodium Chloride (Normal Saline) 100 mls @ 3 mls/sec IV ONETIME ONE Stop: 12/09/16 12:52 Last Admin: 12/09/16 13:22 Dose: 3 mls/sec Vancomycin HCl 2 gm/ Sodium (Chloride) 500 mls @ 250 mls/hr IV ONETIME ONE Stop: 12/09/16 14:57 Last Admin: 12/09/16 13:20 Dose: 250 mls/hr Sodium Chloride (Normal Saline) 1,000 mls @ 100 mls/hr IV ASDIRECTED [facility] Last Admin: 12/10/16 06:04 Dose: 100 mls/hr Vancomycin HCl 1,500 mg/ (Sodium Chloride) 250 mls @ 167 mls/hr IV Q12H [facility] Last Admin: 12/10/16 22:49 Dose: 167 mls/hr Iopamidol (Isovue-300 (61%)) 100 ml IVPUSH ONETIME ONE Stop: 12/09/16 12:51 Last Admin: 12/09/16 13:21 Dose: 100 ml Metoprolol Succinate (Toprol Xl) 25 mg PO DAILY [facility] Last Admin: 12/10/16 22:00 Dose: Not Given Metoprolol Tartrate (Lopressor) 2.5 mg IVPUSH ONETIME ONE Stop: 12/09/16 15:53 Last Admin: 12/09/16 16:14 Dose: 2.5 mg Morphine Sulfate (Ms Contin) 15 mg PO BID SARMAD *Q Meaningful Use (DIS) - VTE *Q VTE Criteria *Q: - Stroke *Q Stroke Criteria *Q: - AMI *Q AMI Criteria *Q:
[2016-12-11 12:08] VITALS: BP 115/72
== END 2016-12-11 12:23 | disposition short-term general hospital (02) | DRG 871 ==
LOC: VM.ED 11:37 → VM.MS 14:58
PROVIDERS: ADMIT Internal Medicine; ATTEND Internal Medicine
DX: A41.9 Sepsis, unspecified organism (principal); R09.02 Hypoxemia; D72.829 Elevated white blood cell count, unspecified; J18.9 Pneumonia, unspecified organism; J96.01 Acute respiratory failure with hypoxia; K80.10 Calculus of gallbladder with chronic cholecystitis without obstruction; R40.0 Somnolence; R41.82 Altered mental status, unspecified; G47.33 Obstructive sleep apnea (adult) (pediatric); I25.10 Atherosclerotic heart disease of native coronary artery without angina pectoris; I10 Essential (primary) hypertension; F17.290 Nicotine dependence, other tobacco product, uncomplicated; G25.81 Restless legs syndrome; G47.00 Insomnia, unspecified; G89.29 Other chronic pain; M54.9 Dorsalgia, unspecified; E11.9 Type 2 diabetes mellitus without complications; E66.01 Morbid (severe) obesity due to excess calories; Z79.84 Long term (current) use of oral hypoglycemic drugs; Z88.0 Allergy status to penicillin; Z79.899 Other long term (current) drug therapy; M54.2 Cervicalgia; M79.602 Pain in left arm
CPT/HCPCS: 36415; 36600; 71260; 74177; 80053; 80305; 81001; 82150; 82550; 82553; 82803; 83605; 83690; 84484; 85025; 86140; 87040 ×2; 93005; 96365; 96366; 96368; 99285; G0480 ×4; J3370; J7030 ×2; J7040; J7050; Q9967; 71010; 76705; 82962; 94760; 99284-GF; A9270-GY; J1170; J1650; J1815-GY; J1956; J3480; J3490

== ENCOUNTER 2019-07-14 17:25 | Inpatient (IN) | payer OTHER, MEDICARE ==
[2019-07-14] MEDS ORDERED: Sodium Chloride 0.9% 10 ML Syringe FLUSH PRN (17:34)
[2019-07-14] MEDS ORDERED: cefTRIAXone 2 GM Vial IVPUSH ONE (17:50)
[2019-07-14] MEDS: Sodium Chloride 0.9% 1,000 ML IV SCH (18:14)
[2019-07-14 18:36] LABS: CHLORIDE,CL 105 mmol/L (98-107); SODIUM,NA 144 mmol/L (136-145)
[2019-07-14 18:37] LABS: ANION GAP 19.7 mmol/L (10-20)
[2019-07-14] MEDS ORDERED: Albuterol/Ipratropium 3.0-0.5 MG/3 ML Neb Soln NEB PRN (18:57)
[2019-07-14] MEDS ORDERED: Ibuprofen 200 MG Tab PO PRN (19:51)
[2019-07-14] MEDS ORDERED: Lidocaine 1% with EPINEPHrine 1:100,000 20 ML MDV INFILT ONE (20:02)
[2019-07-14] MEDS ORDERED: Lidocaine 2% 10 ML Amp ONE (20:37)
[2019-07-14] MEDS ORDERED: Acetaminophen 500 MG Tab PO PRN (21:32)
[2019-07-14] MEDS: Arformoterol 15 MCG/2 ML Neb Soln INH SCH (21:38)
[2019-07-14] MEDS: Meropenem 1 GM SDV IVPUSH SCH (21:38)
[2019-07-14] MEDS: Albuterol/Ipratropium 3.0-0.5 MG/3 ML Neb Soln NEB SCH (21:38)
[2019-07-14] MEDS ORDERED: methylPREDNISolone Sodium Succinate 40 MG/1 ML SDV IVPUSH SCH (21:45)
[2019-07-14] MEDS: atorvaSTATin 10 MG Tab PO SCH (21:58)
[2019-07-14] MEDS: Montelukast 10 MG Tab PO SCH (21:58)
[2019-07-14] MEDS: Donepezil 10 MG Tab PO SCH (21:58)
--- NOTE | 2019-07-14 22:05 | HP ---
Portia or MARIANNA KNIGHT Date: 07/14/2019 Room #: VM.215 CC: Weakness, lethargy, and fever SUBJECTIVE: A 73-year-old, seen today due to acute onset of weakness, lethargy, and fever of 102 that all started this morning. He was fine yesterday per his . He has not been coughing. No vomiting. No diarrhea. No abdominal pain. The patient himself is not very responsive. He does respond to loud verbal stimuli. He denies that he has any headache or neck pain, but he unfortunately does have a history of spinal meningitis back at age 23. The patient did get some Tylenol at the custodial. He was afebrile by the time he arrived at the ER, but he was still tachycardic. His x-ray showed bilateral infiltrates. He was swabbed, that was negative for influenza. His lactic was 3.4. His urine was dark, but negative for infection. The patient does have a history of dementia. His states he was doing well until about 2 years ago when he developed gallbladder attack and ended up with surgery. He has been in the custodial. He was able to walk up until today. His allergies include penicillin. He has a severe allergic reaction to that. He did tolerate the Rocephin in the ER. MEDICATIONS: List reviewed. He is on Tresiba 10 units at bedtime. He is on Motrin 800 every 8 hours as needed for pain. He is on DuoNeb. He is on Mirapex 1 mg twice daily, metformin 1000 twice daily, Cymbalta 60 mg daily, Perforomist twice daily, Lasix 40 mg daily, nystatin cream topically, Lyrica 150 twice daily, Aricept 10 mg at bedtime, Lipitor 10 mg daily, Prilosec 40 mg daily, primidone 250 b.i.d., Glucotrol 10 mg daily, Singulair 10 mg at bedtime, Zaroxolyn every other day, Klor-Con 10 mEq twice daily, grape seed extract, losartan 100. PAST MEDICAL HISTORY: His past medical history includes a history of cholecystitis, status post surgery. He has had back surgeries and hip joint surgery. He has had dementia with underlying disease without behavior disturbance. He has had essential hypertension. He has had GERD. He has had uncontrolled type 2 diabetes with an A1c of 12 with long-term insulin use. He has had history of hypoxia. He has had lymphocytic colitis. He has had emphysema, but they deny that he has been on oxygen. He has had recurrent major depression. Sleep apnea, but can tolerate it. Restless legs syndrome. PAST SURGICAL HISTORY: Tonsillectomy, spine surgery at L4 and 5, laparoscopic cholecystectomy, hip replacement on the right, cataracts. FAMILY HISTORY: Unable to review with the patient. SOCIAL HISTORY: The patient served in [employer]. He moved from [place] to [place] last year. He was admitted to the [facility] in the fall of 2019. He is . REVIEW OF SYSTEMS: General: Unobtainable due to the patient's current condition; however, he could say that he had no headache. PHYSICAL EXAMINATION: Vital Signs: Again, T-max today was 102 at the custodial. Temperature 96.7, pulse 97, blood pressure 125/61, respiratory rate 18, and O2 of 97% on 2 L, later 93% on 2 L. General: He is in no acute distress. Heart: With a regular rate and rhythm with distant tones. No murmurs appreciated. Lungs: Lung sounds decreased with inspiratory and expiratory wheezes throughout. Abdomen: Slightly distended but positive bowel sounds. Soft and nontender. Extremities: Warm and dry. No edema. Mental Status: He is reactive to loud voice. He is unable to tell me he is at the hospital. He is able to tell his he loved her. DIAGNOSTIC DATA: EKG does show a new right bundle branch block and left posterior fascicular block, probably a sinus rhythm with a first-degree AV block. Chest x-ray does show the bilateral infiltrates. Lab work shows white count normal at 8.4, hemoglobin 14.4, and platelets 282. INR 0.9. Sodium 144, potassium 3.7, chloride 105, bicarb 23, BUN 40, creatinine 1.4, glucose 125, lactic 3.4, calcium 8.6, magnesium 1.8, bilirubin 0.3, AST 21, ALT 38, alkaline phosphatase 102. Troponin normal. CRP 5.5. ProBNP 614, protein 8.3. TSH 0.99. UA showed 5 to 10 rbc's. Influenza testing was negative. The patient's chart review also showed him to have an EF of 55% back in 2017. ASSESSMENT: 1. Sepsis, fever, and worsened tachycardia at the custodial. This was an acute onset today. We will repeat the lactic acid within 3 hours. I will also get the ABG due to unresponsiveness. Due to negative influenza testing, I discussed the risks and benefits with the patient and his of a lumbar puncture. She signed the consent, and we will proceed with that, especially given his history of meningitis. He has already received 2 g of Rocephin, which he did tolerate despite the penicillin allergy. If he is positive for meningitis, we will consider transfer to [place] versus 2 g q.12 hours dosing. Otherwise, I am going to also add him on vancomycin, Pharmacy to dose, and meropenem 2 g every 8 hours. He has had blood cultures done as well. 2. Diabetes, uncontrolled. Blood sugar is currently normal. He is due for his Lantus this evening. We will go ahead and give him that. Do q.i.d. Accu-Chek. 3. Chronic kidney disease stage 3. His baseline creatinine has been around the 1.2 to 1.4 range. He is getting IV fluids. We will repeat in the morning. 4. Depression. We will continue his Cymbalta. 5. Chronic pain. Due to his sedation, I am actually going to hold the Lyrica. 6. Reported history of smoking and emphysema, probably a chronic obstructive pulmonary disease exacerbation. We will have him on scheduled and p.r.n. nebulizers. We will get an ABG. The patient actually had already received the Rocephin in the ER. Therefore, I am holding off on any dexamethasone, but if meningitis is negative and wheezing continues, I will give him a dose of Solu-Medrol. 7. Essential hypertension, he has actually dropped his blood pressure around 100. He has mild hypotension. We are repeating a lactic acid. I am going to hold on his losartan. 8. Sleep apnea. He cannot tolerate CPAP. We will keep his head of the bed elevated. We will place him on BiPAP if hypercapnic. 9. Dementia without behavioral disturbance. He is on his Aricept. 10.Gastroesophageal reflux disease. He will continue his home medications. PLAN: At this point, the patient is admitted for acute cares. He did get a dose of IV Rocephin 2 g. We will continue vancomycin and meropenem for now and see what the results of the LP show. We will repeat his lactic, ABGs, and troponin now, and we will get other lab work repeated in the morning. For DVT prophylaxis, we will consider some Lovenox tomorrow, but at this point, we will hold off to get the LP. The patient is a code level 1; this was discussed with his . MKA: 07/14/2019 20:26:27 MODL: 07/14/2019 21:58:58 /[id number] MTDD
[2019-07-15] MEDS: Insulin Glarg,Human.Rec.Analog 100 Unit/ML SUBCUT SCH ×2 (00:43→20:23)
[2019-07-15] MEDS: Sodium Chloride 0.9% 1,000 ML IV SCH (00:48)
[2019-07-15] MEDS: Albuterol/Ipratropium 3.0-0.5 MG/3 ML Neb Soln NEB SCH ×4 (01:46→18:10)
[2019-07-15] MEDS: Meropenem 1 GM SDV IVPUSH SCH ×3 (04:19→20:20)
--- NOTE | 2019-07-15 05:07 | EDM.PDOC ---
ED HPI GENERAL MEDICAL PROBLEM - General Chief Complaint: Fever Time Seen by Provider: 07/14/19 17:25 Source of Information: Reports: Patient, EMS History Limitations: Reports: No Limitations - History of Present Illness INITIAL COMMENTS - FREE TEXT/NARRATIVE: Pt. presents to ER via EMS. He is a resident at the [facility]. Staff states that the patient developed acute onset fever, fatigue, lethargy this morning. Symptoms have gotten worse throughout the day. states that the patient was fine yesterday. He hasn't had any cough. No nausea, vomiting, or diarrhea. No skin rashes. No known recent history of aspiration/choking; ROS is questionable due to lethargy of the patient/dementia. Pt. has had flu shot this year. He has not been experiencing any sore throat, congestion, or complaints of headache. Pt. had a fever at the detention. He was given tylenol prior to transport. His fever apparently broke, as his temp was normal on arrival and he was extremely diaphoretic. Pt. was able to relate that he was not experiencing any chest pain, shortness of breath, other other signs or symptoms other than what was mentioned earlier. 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 - Related Data Allergies Allergy/AdvReac Type Severity Reaction Status Date / Time Penicillins Allergy Anaphylactic Verified 07/14/19 18:47 Shock Home Meds: Home Meds Montelukast [Singulair] 10 mg PO BEDTIME 12/09/16 [History] Pramipexole [Mirapex] 1 mg PO BID 12/09/16 [History] Primidone 250 mg PO BID 12/09/16 [History] DULoxetine [Cymbalta] 60 mg PO DAILY 03/17/19 [History] Donepezil HCl [Aricept] 10 mg PO BEDTIME 03/17/19 [History] Formoterol Fumarate [Perforomist] 20 mcg IH BID 03/17/19 [History] Furosemide 40 mg PO DAILY 03/17/19 [History] Grape Seed Extract [Grape Seed] 2 tab PO DAILY 03/17/19 [History] Ibuprofen 800 mg PO Q8H PRN 03/17/19 [History] Ipratropium [Atrovent] 0.5 mg INH BID 03/17/19 [History] Ketoconazole [Nizoral 2% Shampoo] 1 applic TOP TUFR@10 03/17/19 [History] Losartan [Cozaar] 100 mg PO DAILY 03/17/19 [History] Nystatin [Nystatin Crm] 30 gm TOP BID 03/17/19 [History] Omeprazole 40 mg PO DAILY 03/17/19 [History] Potassium Chloride 10 meq PO BID 03/17/19 [History] Pregabalin 150 mg PO BID 03/17/19 [History] atorvaSTATin [Lipitor] 10 mg PO BEDTIME 03/17/19 [History] glipiZIDE [Glipizide ER] 10 mg PO DAILY 03/17/19 [History] metFORMIN HCl [Metformin HCl] 1,000 mg PO BID 03/17/19 [History] metOLazone [Metolazone] 2.5 mg PO ASDIRECTED 03/17/19 [History] Insulin Degludec [Tresiba] 10 units SUBCUT DAILY 07/14/19 [History] Past Medical History HEENT History: Reports: Cataract, Impaired Vision Cardiovascular History: Reports: Hypertension Respiratory History: Reports: COPD, Sleep Apnea, Other (See Below) Other Respiratory History: hypoxia. emphysema Gastrointestinal History: Reports: GERD, Other (See Below) Other Gastrointestinal History: colecystitis. lymphocytic colitis Genitourinary History: Reports: Urinary Incontinence Musculoskeletal History: Reports: Arthritis, Other (See Below) Other Musculoskeletal History: chronic pain syndrome. RLS Other Neuro History: Takes Mirapex for shakiness since Meningitis as a child Psychiatric History: Reports: Dementia, Depression Endocrine/Metabolic History: Reports: Diabetes, Type II, Obesity/BMI 30+ Dermatologic History: Reports: Other (See Below) Other Dermatologic History: On his nose, plan to have removed in near future - Past Surgical History HEENT Surgical History: Reports: Cataract Surgery, Tonsillectomy GI Surgical History: Reports: Cholecystectomy Musculoskeletal Surgical History: Reports: Hip Replacement, Other (See Below) Other Musculoskeletal Surgeries/Procedures:: Back Surgery Social & Family History - Family History Family Medical History: Unobtainable - Tobacco Use Smoking Status *Q: Former Smoker Used Tobacco, but Quit: Yes Month/Year Tobacco Last Used: 04/08 Second Hand Smoke Exposure: No - Caffeine Use Caffeine Use: Reports: Coffee - Recreational Drug Use Recreational Drug Use: No - Living Situation & Occupation Living situation: Reports: , with Significant Other Occupation: Retired ED ROS GENERAL - Review of Systems Review Of Systems: See Below Constitutional: Reports: Fever, Chills, Malaise, Weakness, Fatigue, Night Sweats HEENT: Reports: No Symptoms Respiratory: Reports: No Symptoms Cardiovascular: Reports: No Symptoms Endocrine: Reports: No Symptoms GI/Abdominal: Reports: No Symptoms. Denies: Abdominal Pain, Black Stool, Bloody Stool, Diarrhea, Distension, Hematemesis, Hematochezia : Reports: No Symptoms Musculoskeletal: Reports: No Symptoms Skin: Reports: No Symptoms Neurological: Reports: No Symptoms Psychiatric: Reports: No Symptoms Hematologic/Lymphatic: Reports: No Symptoms Immunologic: Reports: No Symptoms ED EXAM, GENERAL - Physical Exam Exam: See Below Exam Limited By: No Limitations General Appearance: Alert, WD/WN, No Apparent Distress Eye Exam: Bilateral Eye: EOMI, Normal Fundi, Normal Inspection, PERRL Ears: Normal External Exam, Normal Canal, Hearing Grossly Normal, Normal TMs Nose: Normal Inspection, Normal Mucosa Throat/Mouth: Normal Inspection, Normal Lips, Normal Oropharynx, Normal Voice, No Airway Compromise Head: Atraumatic, Normocephalic Neck: Normal Inspection, Supple, Non-Tender, Full Range of Motion Respiratory/Chest: Chest Non-Tender, Decreased Breath Sounds Cardiovascular: Normal Peripheral Pulses, Regular Rate, Rhythm, No Edema, No JVD , No Murmur Peripheral Pulses: 4+: Radial (L) GI/Abdominal: Normal Bowel Sounds, Soft, Non-Tender, No Organomegaly, No Distention, No Mass (Male) Exam: Deferred Rectal (Males) Exam: Deferred Back Exam: Normal Inspection Extremities: Other (Wears JACINTA hose. Possible mild cellulitis vs. contact reaction to JACINTA hose. Legs are not overly warm to touch.) Neurological: Alert, Oriented, CN II-XII Intact, Normal Cognition, Normal Gait, Normal Reflexes, No Motor/Sensory Deficits Psychiatric: Depressed Mood, Flat Affect Skin Exam: Warm, Dry, Intact, No Rash, Pallor, Other (see above) Lymphatic: No Adenopathy Course - Vital Signs Last Recorded V/S: Last Vital Signs Temp 36.7 C 07/15/19 04:22 Pulse 85 07/15/19 04:22 Resp 16 07/15/19 04:22 BP 121/69 07/15/19 04:22 Pulse Ox 94 L 07/15/19 04:22 - Orders/Labs/Meds Orders: Active Orders 24 hr Category Date Time Status Chest 1V Frontal [CR] Stat Exams 07/14/19 17:34 Taken CULTURE BLOOD [BC] Stat Lab 07/14/19 17:55 Received CULTURE BLOOD [BC] Stat Lab 07/14/19 18:00 Received Sodium Chloride 0.9% [Normal Saline] 1,000 ml Med 07/14/19 17:45 Active IV ASDIRECTED Sodium Chloride 0.9% [Saline Flush] Med 07/14/19 17:34 Active 10 ml FLUSH ASDIRECTED PRN Blood Culture x2 Reflex Set [OM.PC] Stat Oth 07/14/19 17:35 Ordered Peripheral IV Insertion Adult [OM.PC] Routine Oth 07/14/19 17:35 Ordered Medication Orders Acetaminophen (Tylenol Extra Strength) 500 mg PO Q4H PRN PRN Reason: Fever Albuterol/Ipratropium (Duoneb 3.0-0.5 Mg/3 Ml) 3 ml NEB Q2H PRN PRN Reason: Wheezing Albuterol/Ipratropium (Duoneb 3.0-0.5 Mg/3 Ml) 3 ml NEB Q6H SARMAD Last Admin: 07/15/19 01:46 Dose: 3 ml Admin: 07/14/19 21:38 Dose: 3 ml Arformoterol Tartrate (Brovana) 15 mcg INH BIDRT [facility] Last Admin: 07/14/19 21:38 Dose: 15 mcg Atorvastatin Calcium (Lipitor) 10 mg PO BEDTIME SARMAD Last Admin: 07/14/19 21:58 Dose: Not Given Donepezil HCl (Aricept) 10 mg PO BEDTIME [facility] Last Admin: 07/14/19 21:58 Dose: Not Given Duloxetine HCl (Cymbalta) 60 mg PO DAILY [facility] Sodium Chloride (Normal Saline) 1,000 mls @ 150 mls/hr IV ASDIRECTED [facility] Last Admin: 07/15/19 00:48 Dose: 150 mls/hr Infusion: 07/15/19 00:48 Dose: 150 mls/hr Admin: 07/14/19 18:14 Dose: 150 mls/hr Vancomycin HCl 1.25 gm/ Sodium (Chloride) 250 mls @ 200 mls/hr IV Q12H [facility] Last Admin: 07/14/19 21:38 Dose: 200 mls/hr Ibuprofen (Motrin) 400 mg PO Q8H PRN PRN Reason: Pain Insulin Glargine (Lantus) 10 unit SUBCUT BEDTIME [facility] Last Admin: 07/15/19 00:43 Dose: 10 units Meropenem (Merrem) 2 gm IVPUSH Q8H S[facility]AD Last Admin: 07/15/19 04:19 Dose: 2 gm Admin: 07/14/19 21:38 Dose: 2 gm Methylprednisolone Sodium Succinate (Solu-Medrol) 40 mg IVPUSH Q12H [facility] Last Admin: 07/14/19 22:01 Dose: 40 mg Montelukast Sodium (Singulair) 10 mg PO BEDTIME S[facility] Last Admin: 07/14/19 21:58 Dose: Not Given Omeprazole (Omeprazole) 40 mg PO ACBREAKFAST [facility] Potassium Chloride (Klor-Con 10) 10 meq PO BID [facility] Sodium Chloride (Saline Flush) 10 ml FLUSH ASDIRECTED PRN PRN Reason: Keep Vein Open Vancomycin HCl (Pharmacy To Dose - Vancomycin) 1 dose .XX ONETIME ONE Stop: 07/14/19 19:50 Labs: Laboratory Tests 07/14/19 07/14/19 07/14/19 Range/Units 17:55 17:55 17:55 WBC 8.4 (4.0-10.0) x10^3/uL RBC 5.13 (4.5-6.0) x10^6/uL Hgb 14.4 D (14.0-18.0) g/dL Hct 42.5 (40.0-52.0) % MCV 82.8 (78.0-93.0) fL MCH 28.1 (26.0-32.0) pg MCHC 33.9 (32.0-36.0) g/dL RDW Coeff of Andrzej 14.5 (10.0-15.0) % Plt Count 282 (130-400) x10^3/uL Neut % (Auto) 85.5 H (50.0-80.0) % Lymph % (Auto) 8.3 L (25.0-50.0) % Surry % (Auto) 5.5 (2.0-11.0) % Eos % (Auto) 0.1 (0.0-4.0) % Baso % (Auto) 0.6 (0.2-1.2) % PT 10.7 (10.0-12.8) SEC INR 0.9 L (2.0-3.5) Sodium 144 (136-145) mmol/L Potassium 3.7 (3.5-5.1) mmol/L Chloride 105 (98-107) mmol/L Carbon Dioxide 23 (21-32) mmol/L Anion Gap 19.7 (10-20) mmol/L BUN 40 H D (7-18) mg/dL Creatinine 1.4 H (0.70-1.30) mg/dL Est Cr Clr Drug Dosing TNP Estimated GFR (MDRD) 50 Glucose 125 H (74-106) mg/dL Lactic Acid (0.4-2.0) mmol/L Calcium 8.6 (8.5-10.1) mg/dL Corrected Calcium 9.00 (8.5-10.1) mg/dL Magnesium 1.8 (1.8-2.4) mg/dL Total Bilirubin 0.3 (0.2-1.0) mg/dL AST 21 (15-37) U/L ALT 38 (16-63) U/L Alkaline Phosphatase 102 (46-116) U/L Troponin I < 0.017 (<=0.056) ng/mL C-Reactive Protein 5.5 H (<=0.9) mg/dL NT-Pro-B Natriuret Pep 614 H (<=125) pg/mL Total Protein 8.3 H (6.4-8.2) g/dL Albumin 3.5 (3.4-5.0) g/dL Globulin 4.8 Albumin/Globulin Ratio 0.73 TSH, Ultra Sensitive 0.996 (0.358-3.74) uIU/mL 07/14/19 Range/Units 17:55 WBC (4.0-10.0) x10^3/uL RBC (4.5-6.0) x10^6/uL Hgb (14.0-18.0) g/dL Hct (40.0-52.0) % MCV (78.0-93.0) fL MCH (26.0-32.0) pg MCHC (32.0-36.0) g/dL RDW Coeff of Andrzej (10.0-15.0) % Plt Count (130-400) x10^3/uL Neut % (Auto) (50.0-80.0) % Lymph % (Auto) (25.0-50.0) % [place] % (Auto) (2.0-11.0) % Eos % (Auto) (0.0-4.0) % Baso % (Auto) (0.2-1.2) % PT (10.0-12.8) SEC INR (2.0-3.5) Sodium (136-145) mmol/L Potassium (3.5-5.1) mmol/L Chloride (98-107) mmol/L Carbon Dioxide (21-32) mmol/L Anion Gap (10-20) mmol/L BUN (7-18) mg/dL Creatinine (0.70-1.30) mg/dL Est Cr Clr Drug Dosing Estimated GFR (MDRD) Glucose (74-106) mg/dL Lactic Acid 3.4 H* (0.4-2.0) mmol/L Calcium (8.5-10.1) mg/dL Corrected Calcium (8.5-10.1) mg/dL Magnesium (1.8-2.4) mg/dL Total Bilirubin (0.2-1.0) mg/dL AST (15-37) U/L ALT (16-63) U/L Alkaline Phosphatase (46-116) U/L Troponin I (<=0.056) ng/mL C-Reactive Protein (<=0.9) mg/dL NT-Pro-B Natriuret Pep (<=125) pg/mL Total Protein (6.4-8.2) g/dL Albumin (3.4-5.0) g/dL Globulin Albumin/Globulin Ratio TSH, Ultra Sensitive (0.358-3.74) uIU/mL Meds: Medications Generic Name Dose Route Start Last Admin Trade Name Freq PRN Reason Stop Dose Admin Acetaminophen 500 mg 07/14/19 21:32 Tylenol Extra Strength PO Q4H PRN Fever Albuterol/Ipratropium 3 ml 07/14/19 18:57 Duoneb 3.0-0.5 Mg/3 Ml NEB Q2H PRN Wheezing Albuterol/Ipratropium 3 ml 07/14/19 20:00 07/15/19 01:46 Duoneb 3.0-0.5 Mg/3 Ml NEB 3 ml Q6H SARMAD Administration Arformoterol Tartrate 15 mcg 07/14/19 20:45 07/14/19 21:38 Brovana INH 15 mcg BIDRT SARMAD Administration Atorvastatin Calcium 10 mg 07/14/19 20:00 07/14/19 21:58 Lipitor PO Not Given BEDTIME SARMDA Donepezil HCl 10 mg 07/14/19 20:00 07/14/19 21:58 Aricept PO Not Given BEDTIME SARMAD Duloxetine HCl 60 mg 07/15/19 08:00 Cymbalta PO DAILY [facility] Sodium Chloride 1,000 mls @ 150 mls/hr 07/14/19 17:45 07/15/19 00:48 Normal Saline IV 150 mls/hr ASDIRECTED SARMAD Administration Vancomycin HCl 1.25 gm/ Sodium 250 mls @ 200 mls/hr 07/14/19 22:00 07/14/19 21:38 Chloride IV 200 mls/hr Q12H SARMAD Administration Ibuprofen 400 mg 07/14/19 19:51 Motrin PO Q8H PRN Pain Insulin Glargine 10 unit 07/15/19 00:15 07/15/19 00:43 Lantus SUBCUT 10 units BEDTIME S[facility] Administration Meropenem 2 gm 07/14/19 20:30 07/15/19 04:19 Merrem IVPUSH 2 gm Q8H [facility] Administration Methylprednisolone Sodium Succinate 40 mg 07/14/19 21:45 07/14/19 22:01 Solu-Medrol IVPUSH 40 mg Q12H [facility] Administration Montelukast Sodium 10 mg 07/14/19 20:00 07/14/19 21:58 Singulair PO Not Given BEDTIME [facility] Omeprazole 40 mg 07/15/19 07:00 Omeprazole PO ACBREAKFAST [facility] Potassium Chloride 10 meq 07/15/19 08:00 Klor-Con 10 PO BID [facility] Sodium Chloride 10 ml 07/14/19 17:34 Saline Flush FLUSH ASDIRECTED PRN Keep Vein Open Vancomycin HCl 1 dose 07/14/19 19:49 Pharmacy To Dose - Vancomycin .XX 07/14/19 19:50 ONETIME ONE Discontinued Medications Generic Name Dose Route Start Last Admin Trade Name Freq PRN Reason Stop Dose Admin Ceftriaxone Sodium 2 gm 07/14/19 17:50 07/14/19 18:14 Rocephin IVPUSH 07/14/19 17:51 2 gm STAT ONE Administration Insulin Glargine 10 unit 07/15/19 08:00 Lantus SUBCUT DAILY SARMAD Lidocaine HCl Confirm 07/14/19 20:37 07/14/19 21:39 Xylocaine-Mpf 2% (Sterile-Fareed) Administered 07/14/19 20:38 10 ml Dose Administration 10 ml .ROUTE .STK-MED ONE Lidocaine/Epinephrine 3 ml 07/14/19 20:02 07/14/19 21:39 Xylocaine 1% With Epinephrine 1:100,000 INFILT 07/14/19 20:03 Not Given ONETIME ONE - Radiology Interpretation Free Text/Narrative:: CXR reveals acute R middle lobe infiltrate. Departure - Departure Time of Disposition: 18:18 Disposition: Admitted As Inpatient 68 Clinical Impression: Pneumonia - Discharge Information Sepsis Event Note - Evaluation Sepsis Screening Result: No Definite Risk - Focused Exam Date Exam was Performed: 07/15/19 Time Exam was Performed: 05:54 - Problem List Review Problem List Initiated/Reviewed/Updated: Yes - My Orders Last 24 Hours: My Active Orders 07/14/19 17:34 Chest 1V Frontal [CR] Stat Sodium Chloride 0.9% [Saline Flush] 10 ml FLUSH ASDIRECTED PRN 07/14/19 17:35 Blood Culture x2 Reflex Set [OM.PC] Stat Peripheral IV Insertion Adult [OM.PC] Routine 07/14/19 17:45 Sodium Chloride 0.9% [Normal Saline] 1,000 ml IV ASDIRECTED 07/14/19 17:55 CULTURE BLOOD [BC] Stat 07/14/19 18:00 CULTURE BLOOD [BC] Stat - Assessment/Plan Last 24 Hours: My Active Orders 07/14/19 17:34 Chest 1V Frontal [CR] Stat Sodium Chloride 0.9% [Saline Flush] 10 ml FLUSH ASDIRECTED PRN 07/14/19 17:35 Blood Culture x2 Reflex Set [OM.PC] Stat Peripheral IV Insertion Adult [OM.PC] Routine 07/14/19 17:45 Sodium Chloride 0.9% [Normal Saline] 1,000 ml IV ASDIRECTED 07/14/19 17:55 CULTURE BLOOD [BC] Stat 07/14/19 18:00 CULTURE BLOOD [BC] Stat Plan: Pt. will be admitted acutely by Dr. Milian. Pt. was moved to the floor and attended to by her as the ER was full. All questions were answered.
[2019-07-15] MEDS: Omeprazole 20 MG Cap.CR PO SCH (06:14)
[2019-07-15] MEDS: Arformoterol 15 MCG/2 ML Neb Soln INH SCH ×2 (06:15→20:21)
[2019-07-15 07:25] LABS: ANION GAP 16.5 mmol/L (10-20)
[2019-07-15] MEDS ORDERED: Insulin Glarg,Human.Rec.Analog 100 Unit/ML SUBCUT SCH (08:00)
--- NOTE | 2019-07-15 08:23 | PCM.PN ---
- General Info Date of Service: 07/15/19 Subjective Update: 73 yo male hospital day #2 admitted with sepsis secondary to community acquired pneumonia after presenting to the ER with fever, weakness, and lethargy. Patient is doing much better today. He states that he does not really recall anything from yesterday but is feeling "good" this morning. He is sitting up and eating breakfast and states his appetite is good. He feels his strength is better today. He denies any recent cough and denies any chest pain or shortness of breath. He has not had any fevers overnight. - Review of Systems General: Reports: No Symptoms HEENT: Reports: No Symptoms Pulmonary: Reports: No Symptoms Cardiovascular: Reports: No Symptoms Gastrointestinal: Reports: No Symptoms Genitourinary: Reports: No Symptoms Musculoskeletal: Reports: No Symptoms Skin: Reports: No Symptoms Neurological: Reports: No Symptoms - Patient Data Vitals - Most Recent: Last Vital Signs Temp 36.7 C 07/15/19 04:22 Pulse 85 07/15/19 04:22 Resp 16 07/15/19 04:22 BP 121/69 07/15/19 04:22 Pulse Ox 93 L 07/15/19 07:18 Weight - Most Recent: 131.202 kg I&O - Last 24 Hours: Intake & Output 07/14/19 07/15/19 07/15/19 22:59 06:59 14:59 Intake Total 1891 Output Total 1325 Balance 566 Lab Results Last 24 Hours: Laboratory Results - last 24 hr 07/14/19 07/14/19 07/14/19 Range/Units 17:55 17:55 17:55 WBC 8.4 (4.0-10.0) x10^3/uL RBC 5.13 (4.5-6.0) x10^6/uL Hgb 14.4 D (14.0-18.0) g/dL Hct 42.5 (40.0-52.0) % MCV 82.8 (78.0-93.0) fL MCH 28.1 (26.0-32.0) pg MCHC 33.9 (32.0-36.0) g/dL RDW Coeff of Andrzej 14.5 (10.0-15.0) % Plt Count 282 (130-400) x10^3/uL Neut % (Auto) 85.5 H (50.0-80.0) % Lymph % (Auto) 8.3 L (25.0-50.0) % [place] % (Auto) 5.5 (2.0-11.0) % Eos % (Auto) 0.1 (0.0-4.0) % Baso % (Auto) 0.6 (0.2-1.2) % PT 10.7 (10.0-12.8) SEC INR 0.9 L (2.0-3.5) POC VBG pH (7.31-7.41) POC VBG pCO2 (41-51) POC VBG pO2 POC VBG HCO3 (23-28) POC VBG Total CO2 (24-29) POC VBG Base Excess ((-2) - 3) POC FiO2 Sodium 144 (136-145) mmol/L Potassium 3.7 (3.5-5.1) mmol/L Chloride 105 (98-107) mmol/L Carbon Dioxide 23 (21-32) mmol/L Anion Gap 19.7 (10-20) mmol/L BUN 40 H D (7-18) mg/dL Creatinine 1.4 H (0.70-1.30) mg/dL Est Cr Clr Drug Dosing TNP Estimated GFR (MDRD) 50 Glucose 125 H (74-106) mg/dL POC Glucose (74-106) mg/dL Lactic Acid (0.4-2.0) mmol/L Calcium 8.6 (8.5-10.1) mg/dL Corrected Calcium 9.00 (8.5-10.1) mg/dL Magnesium 1.8 (1.8-2.4) mg/dL Total Bilirubin 0.3 (0.2-1.0) mg/dL AST 21 (15-37) U/L ALT 38 (16-63) U/L Alkaline Phosphatase 102 (46-116) U/L Troponin I < 0.017 (<=0.056) ng/mL C-Reactive Protein 5.5 H (<=0.9) mg/dL NT-Pro-B Natriuret Pep 614 H (<=125) pg/mL Total Protein 8.3 H (6.4-8.2) g/dL Albumin 3.5 (3.4-5.0) g/dL Globulin 4.8 Albumin/Globulin Ratio 0.73 TSH, Ultra Sensitive 0.996 (0.358-3.74) uIU/mL Urine Color (YELLOW) Urine Appearance (CLEAR) Urine pH (5.0-8.0) Ur Specific [place] Urine Protein (NEGATIVE) mg/dL Urine Glucose (UA) (NEGATIVE) mg/dL Urine Ketones (NEGATIVE) mg/dL Urine Occult Blood (NEGATIVE) Urine Nitrite (NEGATIVE) Urine Bilirubin (NEGATIVE) Urine Urobilinogen (0.2) EU/dL Ur Leukocyte Esterase (NEGATIVE) U Hyaline Cast (Auto) Urine RBC (NOT SEEN) /HPF Urine WBC (NOT SEEN) /HPF Ur Squamous Epith Cells (NEGATIVE) /HPF Amorphous Sediment Urine Bacteria (NEGATIVE) /HPF Urine Mucus (NEGATIVE) /LPF CSF WBC (3) (0-10) CSF Neutrophils (3) (0-8) CSF Lymphocytes (3) (0-8) CSF Glucose (40-70) mg/dL CSF Total Protein (15.0-45.0) mg/dL 07/14/19 07/14/19 07/14/19 Range/Units 17:55 19:10 20:52 WBC (4.0-10.0) x10^3/uL RBC (4.5-6.0) x10^6/uL Hgb (14.0-18.0) g/dL Hct (40.0-52.0) % MCV (78.0-93.0) fL MCH (26.0-32.0) pg MCHC (32.0-36.0) g/dL RDW Coeff of Andrzej (10.0-15.0) % Plt Count (130-400) x10^3/uL Neut % (Auto) (50.0-80.0) % Lymph % (Auto) (25.0-50.0) % [place] % (Auto) (2.0-11.0) % Eos % (Auto) (0.0-4.0) % Baso % (Auto) (0.2-1.2) % PT (10.0-12.8) SEC INR (2.0-3.5) POC VBG pH (7.31-7.41) POC VBG pCO2 (41-51) POC VBG pO2 POC VBG HCO3 (23-28) POC VBG Total CO2 (24-29) POC VBG Base Excess ((-2) - 3) POC FiO2 Sodium (136-145) mmol/L Potassium (3.5-5.1) mmol/L Chloride (98-107) mmol/L Carbon Dioxide (21-32) mmol/L Anion Gap (10-20) mmol/L BUN (7-18) mg/dL Creatinine (0.70-1.30) mg/dL Est Cr Clr Drug Dosing Estimated GFR (MDRD) Glucose (74-106) mg/dL POC Glucose (74-106) mg/dL Lactic Acid 3.4 H* (0.4-2.0) mmol/L Calcium (8.5-10.1) mg/dL Corrected Calcium (8.5-10.1) mg/dL Magnesium (1.8-2.4) mg/dL Total Bilirubin (0.2-1.0) mg/dL AST (15-37) U/L ALT (16-63) U/L Alkaline Phosphatase (46-116) U/L Troponin I (<=0.056) ng/mL C-Reactive Protein (<=0.9) mg/dL NT-Pro-B Natriuret Pep (<=125) pg/mL Total Protein (6.4-8.2) g/dL Albumin (3.4-5.0) g/dL Globulin Albumin/Globulin Ratio TSH, Ultra Sensitive (0.358-3.74) uIU/mL Urine Color Dark yellow H (YELLOW) Urine Appearance Slightly cloudy H (CLEAR) Urine pH 5.0 (5.0-8.0) Ur Specific [place] 1.015 Urine Protein 30 H (NEGATIVE) mg/dL Urine Glucose (UA) 100 H (NEGATIVE) mg/dL Urine Ketones Negative (NEGATIVE) mg/dL Urine Occult Blood Trace-intact H (NEGATIVE) Urine Nitrite Negative (NEGATIVE) Urine Bilirubin Negative (NEGATIVE) Urine Urobilinogen 0.2 (0.2) EU/dL Ur Leukocyte Esterase Negative (NEGATIVE) U Hyaline Cast (Auto) Few Urine RBC 5-10 H (NOT SEEN) /HPF Urine WBC 0-5 (NOT SEEN) /HPF Ur Squamous Epith Cells Not seen (NEGATIVE) /HPF Amorphous Sediment Moderate Urine Bacteria Few H (NEGATIVE) /HPF Urine Mucus Many H (NEGATIVE) /LPF CSF WBC (3) 0 (0-10) CSF Neutrophils (3) 0 (0-8) CSF Lymphocytes (3) 0 (0-8) CSF Glucose (40-70) mg/dL CSF Total Protein (15.0-45.0) mg/dL 07/14/19 07/14/19 07/14/19 Range/Units 20:52 21:02 21:02 WBC (4.0-10.0) x10^3/uL RBC (4.5-6.0) x10^6/uL Hgb (14.0-18.0) g/dL Hct (40.0-52.0) % MCV (78.0-93.0) fL MCH (26.0-32.0) pg MCHC (32.0-36.0) g/dL RDW Coeff of Andrzej (10.0-15.0) % Plt Count (130-400) x10^3/uL Neut % (Auto) (50.0-80.0) % Lymph % (Auto) (25.0-50.0) % [place] % (Auto) (2.0-11.0) % Eos % (Auto) (0.0-4.0) % Baso % (Auto) (0.2-1.2) % PT (10.0-12.8) SEC INR (2.0-3.5) POC VBG pH (7.31-7.41) POC VBG pCO2 (41-51) POC VBG pO2 POC VBG HCO3 (23-28) POC VBG Total CO2 (24-29) POC VBG Base Excess ((-2) - 3) POC FiO2 Sodium (136-145) mmol/L Potassium (3.5-5.1) mmol/L Chloride (98-107) mmol/L Carbon Dioxide (21-32) mmol/L Anion Gap (10-20) mmol/L BUN (7-18) mg/dL Creatinine (0.70-1.30) mg/dL Est Cr Clr Drug Dosing Estimated GFR (MDRD) Glucose (74-106) mg/dL POC Glucose (74-106) mg/dL Lactic Acid 1.8 (0.4-2.0) mmol/L Calcium (8.5-10.1) mg/dL Corrected Calcium (8.5-10.1) mg/dL Magnesium (1.8-2.4) mg/dL Total Bilirubin (0.2-1.0) mg/dL AST (15-37) U/L ALT (16-63) U/L Alkaline Phosphatase (46-116) U/L Troponin I < 0.017 (<=0.056) ng/mL C-Reactive Protein (<=0.9) mg/dL NT-Pro-B Natriuret Pep (<=125) pg/mL Total Protein (6.4-8.2) g/dL Albumin (3.4-5.0) g/dL Globulin Albumin/Globulin Ratio TSH, Ultra Sensitive (0.358-3.74) uIU/mL Urine Color (YELLOW) Urine Appearance (CLEAR) Urine pH (5.0-8.0) Ur Specific [place] Urine Protein (NEGATIVE) mg/dL Urine Glucose (UA) (NEGATIVE) mg/dL Urine Ketones (NEGATIVE) mg/dL Urine Occult Blood (NEGATIVE) Urine Nitrite (NEGATIVE) Urine Bilirubin (NEGATIVE) Urine Urobilinogen (0.2) EU/dL Ur Leukocyte Esterase (NEGATIVE) U Hyaline Cast (Auto) Urine RBC (NOT SEEN) /HPF Urine WBC (NOT SEEN) /HPF Ur Squamous Epith Cells (NEGATIVE) /HPF Amorphous Sediment Urine Bacteria (NEGATIVE) /HPF Urine Mucus (NEGATIVE) /LPF CSF WBC (3) (0-10) CSF Neutrophils (3) (0-8) CSF Lymphocytes (3) (0-8) CSF Glucose 116 H (40-70) mg/dL CSF Total Protein 131.2 H (15.0-45.0) mg/dL 07/14/19 07/14/19 07/15/19 Range/Units 21:10 21:21 00:42 WBC (4.0-10.0) x10^3/uL RBC (4.5-6.0) x10^6/uL Hgb (14.0-18.0) g/dL Hct (40.0-52.0) % MCV (78.0-93.0) fL MCH (26.0-32.0) pg MCHC (32.0-36.0) g/dL RDW Coeff of Andrzej (10.0-15.0) % Plt Count (130-400) x10^3/uL Neut % (Auto) (50.0-80.0) % Lymph % (Auto) (25.0-50.0) % [place] % (Auto) (2.0-11.0) % Eos % (Auto) (0.0-4.0) % Baso % (Auto) (0.2-1.2) % PT (10.0-12.8) SEC INR (2.0-3.5) POC VBG pH 7.39 (7.31-7.41) POC VBG pCO2 38 L (41-51) POC VBG pO2 56 POC VBG HCO3 23 (23-28) POC VBG Total CO2 24 (24-29) POC VBG Base Excess -2 ((-2) - 3) POC FiO2 0.21 Sodium (136-145) mmol/L Potassium (3.5-5.1) mmol/L Chloride (98-107) mmol/L Carbon Dioxide (21-32) mmol/L Anion Gap (10-20) mmol/L BUN (7-18) mg/dL Creatinine (0.70-1.30) mg/dL Est Cr Clr Drug Dosing Estimated GFR (MDRD) Glucose (74-106) mg/dL POC Glucose 168 H 199 H (74-106) mg/dL Lactic Acid (0.4-2.0) mmol/L Calcium (8.5-10.1) mg/dL Corrected Calcium (8.5-10.1) mg/dL Magnesium (1.8-2.4) mg/dL Total Bilirubin (0.2-1.0) mg/dL AST (15-37) U/L ALT (16-63) U/L Alkaline Phosphatase (46-116) U/L Troponin I (<=0.056) ng/mL C-Reactive Protein (<=0.9) mg/dL NT-Pro-B Natriuret Pep (<=125) pg/mL Total Protein (6.4-8.2) g/dL Albumin (3.4-5.0) g/dL Globulin Albumin/Globulin Ratio TSH, Ultra Sensitive (0.358-3.74) uIU/mL Urine Color (YELLOW) Urine Appearance (CLEAR) Urine pH (5.0-8.0) Ur Specific [place] Urine Protein (NEGATIVE) mg/dL Urine Glucose (UA) (NEGATIVE) mg/dL Urine Ketones (NEGATIVE) mg/dL Urine Occult Blood (NEGATIVE) Urine Nitrite (NEGATIVE) Urine Bilirubin (NEGATIVE) Urine Urobilinogen (0.2) EU/dL Ur Leukocyte Esterase (NEGATIVE) U Hyaline Cast (Auto) Urine RBC (NOT SEEN) /HPF Urine WBC (NOT SEEN) /HPF Ur Squamous Epith Cells (NEGATIVE) /HPF Amorphous Sediment Urine Bacteria (NEGATIVE) /HPF Urine Mucus (NEGATIVE) /LPF CSF WBC (3) (0-10) CSF Neutrophils (3) (0-8) CSF Lymphocytes (3) (0-8) CSF Glucose (40-70) mg/dL CSF Total Protein (15.0-45.0) mg/dL 07/15/19 07/15/19 07/15/19 Range/Units 05:28 06:29 06:29 WBC 5.2 (4.0-10.0) x10^3/uL RBC 4.66 (4.5-6.0) x10^6/uL Hgb 13.1 L (14.0-18.0) g/dL Hct 39.7 L (40.0-52.0) % MCV 85.2 (78.0-93.0) fL MCH 28.1 (26.0-32.0) pg MCHC 33.0 (32.0-36.0) g/dL RDW Coeff of Andrzej 14.6 (10.0-15.0) % Plt Count 228 (130-400) x10^3/uL Neut % (Auto) 70.9 (50.0-80.0) % Lymph % (Auto) 18.5 L (25.0-50.0) % [place] % (Auto) 9.2 (2.0-11.0) % Eos % (Auto) 0.4 (0.0-4.0) % Baso % (Auto) 1.0 (0.2-1.2) % PT (10.0-12.8) SEC INR (2.0-3.5) POC VBG pH (7.31-7.41) POC VBG pCO2 (41-51) POC VBG pO2 POC VBG HCO3 (23-28) POC VBG Total CO2 (24-29) POC VBG Base Excess ((-2) - 3) POC FiO2 Sodium 147 H (136-145) mmol/L Potassium 3.5 (3.5-5.1) mmol/L Chloride 108 H (98-107) mmol/L Carbon Dioxide 26 (21-32) mmol/L Anion Gap 16.5 (10-20) mmol/L BUN 29 H (7-18) mg/dL Creatinine 1.2 (0.70-1.30) mg/dL Est Cr Clr Drug Dosing 63.81 Estimated GFR (MDRD) 60 Glucose 176 H (74-106) mg/dL POC Glucose 186 H (74-106) mg/dL Lactic Acid (0.4-2.0) mmol/L Calcium 8.0 L (8.5-10.1) mg/dL Corrected Calcium (8.5-10.1) mg/dL Magnesium (1.8-2.4) mg/dL Total Bilirubin (0.2-1.0) mg/dL AST (15-37) U/L ALT (16-63) U/L Alkaline Phosphatase (46-116) U/L Troponin I (<=0.056) ng/mL C-Reactive Protein (<=0.9) mg/dL NT-Pro-B Natriuret Pep (<=125) pg/mL Total Protein (6.4-8.2) g/dL Albumin (3.4-5.0) g/dL Globulin Albumin/Globulin Ratio TSH, Ultra Sensitive (0.358-3.74) uIU/mL Urine Color (YELLOW) Urine Appearance (CLEAR) Urine pH (5.0-8.0) Ur Specific [place] Urine Protein (NEGATIVE) mg/dL Urine Glucose (UA) (NEGATIVE) mg/dL Urine Ketones (NEGATIVE) mg/dL Urine Occult Blood (NEGATIVE) Urine Nitrite (NEGATIVE) Urine Bilirubin (NEGATIVE) Urine Urobilinogen (0.2) EU/dL Ur Leukocyte Esterase (NEGATIVE) U Hyaline Cast (Auto) Urine RBC (NOT SEEN) /HPF Urine WBC (NOT SEEN) /HPF Ur Squamous Epith Cells (NEGATIVE) /HPF Amorphous Sediment Urine Bacteria (NEGATIVE) /HPF Urine Mucus (NEGATIVE) /LPF CSF WBC (3) (0-10) CSF Neutrophils (3) (0-8) CSF Lymphocytes (3) (0-8) CSF Glucose (40-70) mg/dL CSF Total Protein (15.0-45.0) mg/dL Rob Results Last 24 Hours: Microbiology 07/14/19 20:52 Gram Stain - Final Cerebral Spinal Fluid 07/14/19 19:00 Influenza Type A Antigen Screen - Final Nasal, Unspecified NEGATIVE INFLUENZA A VIRUS AG REFERENCE RANGE: NEGATIVE Influenza Type B Antigen Screen - Final NEGATIVE INFLUENZA B VIRUS AG REFERENCE RANGE: NEGATIVE Med Orders - Current: Current Medications Acetaminophen (Tylenol Extra Strength) 500 mg PO Q4H PRN PRN Reason: Fever Albuterol/Ipratropium (Duoneb 3.0-0.5 Mg/3 Ml) 3 ml NEB Q2H PRN PRN Reason: Wheezing Albuterol/Ipratropium (Duoneb 3.0-0.5 Mg/3 Ml) 3 ml NEB Q6H [facility] Last Admin: 07/15/19 07:14 Dose: 3 ml Arformoterol Tartrate (Brovana) 15 mcg INH BIDRT [facility] Last Admin: 07/15/19 06:15 Dose: 15 mcg Atorvastatin Calcium (Lipitor) 10 mg PO BEDTIME [facility] Last Admin: 07/14/19 21:58 Dose: Not Given Donepezil HCl (Aricept) 10 mg PO BEDTIME [facility] Last Admin: 07/14/19 21:58 Dose: Not Given Duloxetine HCl (Cymbalta) 60 mg PO DAILY [facility] Furosemide (Lasix) 40 mg PO DAILY [facility] Ibuprofen (Motrin) 400 mg PO Q8H PRN PRN Reason: Pain Insulin Glargine (Lantus) 10 unit SUBCUT BEDTIME [facility] Last Admin: 07/15/19 00:43 Dose: 10 units Meropenem (Merrem) 2 gm IVPUSH Q8H [facility] Last Admin: 07/15/19 04:19 Dose: 2 gm Montelukast Sodium (Singulair) 10 mg PO BEDTIME [facility] Last Admin: 07/14/19 21:58 Dose: Not Given Non-Formulary Medication (Pregabalin [Pregabalin]) 150 mg PO BID [facility] Omeprazole (Omeprazole) 40 mg PO ACBREAKFAST [facility] Last Admin: 07/15/19 06:14 Dose: 40 mg Potassium Chloride (Klor-Con 10) 10 meq PO BID [facility] Prednisone (Prednisone) 40 mg PO WITHBREAKFAST [facility] Sodium Chloride (Saline Flush) 10 ml FLUSH ASDIRECTED PRN PRN Reason: Keep Vein Open Vancomycin HCl (Pharmacy To Dose - Vancomycin) 1 dose .XX ONETIME ONE Stop: 07/14/19 19:50 Discontinued Medications Ceftriaxone Sodium (Rocephin) 2 gm IVPUSH STAT ONE Stop: 07/14/19 17:51 Last Admin: 07/14/19 18:14 Dose: 2 gm Sodium Chloride (Normal Saline) 1,000 mls @ 150 mls/hr IV ASDIRECTED [facility] Last Admin: 07/15/19 00:48 Dose: 150 mls/hr Vancomycin HCl 1.25 gm/ Sodium (Chloride) 250 mls @ 200 mls/hr IV Q12H [facility] Last Admin: 07/14/19 21:38 Dose: 200 mls/hr Insulin Glargine (Lantus) 10 unit SUBCUT DAILY [facility] Lidocaine HCl (Xylocaine-Mpf 2% (Sterile-Fareed)) Confirm Administered Dose 10 ml .ROUTE .STK-MED ONE Stop: 07/14/19 20:38 Last Admin: 07/14/19 21:39 Dose: 10 ml Lidocaine/Epinephrine (Xylocaine 1% With Epinephrine 1:100,000) 3 ml INFILT ONETIME ONE Stop: 07/14/19 20:03 Last Admin: 07/14/19 21:39 Dose: Not Given Methylprednisolone Sodium Succinate (Solu-Medrol) 40 mg IVPUSH Q12H [facility] Last Admin: 07/14/19 22:01 Dose: 40 mg - Exam General: Alert, Cooperative, No Acute Distress HEENT: Mucous Membr. Moist/[place] Neck: Supple, Trachea Midline, No Thyromegaly. No: Lymphadenopathy Lungs: Clear to Auscultation, Normal Respiratory Effort Cardiovascular: Regular Rate, Regular Rhythm, No Murmurs GI/Abdominal Exam: Normal Bowel Sounds, Soft, Non-Tender, No Organomegaly, No Distention, No Mass Peripheral Pulses: 2+: Radial (L), Radial (R) Skin: Warm, Dry, Intact Neurological: No New Focal Deficit Sepsis Event Note - Evaluation Sepsis Screening Result: No Definite Risk - Focused Exam Vital Signs: Vital Signs Temp Pulse Resp BP Pulse Ox Pulse Ox 07/15/19 07:18 93 L 07/15/19 04:22 36.7 C 85 16 121/69 94 L 07/15/19 01:45 36.4 C 88 16 121/71 95 07/14/19 21:49 36.6 C 88 16 113/64 96 Date Exam was Performed: 07/15/19 Time Exam was Performed: 11:06 - Problem List & Annotations (1) Sepsis SNOMED Code(s): 97446330 Code(s): A41.9 - SEPSIS, UNSPECIFIED ORGANISM Status: Acute Current Visit : Yes Qualifiers: Sepsis type: sepsis due to unspecified organism Sepsis acute organ dysfunction status: without acute organ dysfunction Qualified Code(s): A41.9 - Sepsis, unspecified organism (2) Community acquired pneumonia SNOMED Code(s): 003607683 Code(s): J18.9 - PNEUMONIA, UNSPECIFIED ORGANISM Status: Acute Priority: High Current Visit: No (3) Hypoxia SNOMED Code(s): 039625696 Code(s): R09.02 - HYPOXEMIA Status: Acute Current Visit: No Onset Date : ~12/09/16 (4) COPD (chronic obstructive pulmonary disease) SNOMED Code(s): 09306402 Code(s): J44.9 - CHRONIC OBSTRUCTIVE PULMONARY DISEASE, UNSPECIFIED Status : Acute Current Visit: No Qualifiers: COPD type: COPD with acute exacerbation Qualified Code(s): J44.1 - Chronic obstructive pulmonary disease with (acute) exacerbation (5) Diabetes SNOMED Code(s): 07390560 Code(s): E11.9 - TYPE 2 DIABETES MELLITUS WITHOUT COMPLICATIONS Status: Chronic Current Visit: No Qualifiers: Diabetes mellitus type: type 2 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 use: without terminal computer operator use Diabetes mellitus complication status: without complication Qualified Code(s): E11.9 - Type 2 diabetes mellitus without complications (6) CKD (chronic kidney disease) SNOMED Code(s): 423788626 Code(s): N18.9 - CHRONIC KIDNEY DISEASE, UNSPECIFIED Status: Chronic Current Visit: Yes Qualifiers: Chronic kidney disease stage: stage 3 (moderate) Qualified Code(s): N18.3 - Chronic kidney disease, stage 3 (moderate) (7) Chronic back pain SNOMED Code(s): 511905503 Code(s): M54.9 - DORSALGIA, UNSPECIFIED; G89.29 - OTHER CHRONIC PAIN Status : Chronic Current Visit: No Qualifiers: Back pain location: low back pain Back pain laterality: unspecified Sciatica presence: unspecified whether sciatica present Qualified Code(s): M54.5 - Low back pain; G89.29 - Other chronic pain (8) Dementia SNOMED Code(s): 62984618 Code(s): F03.90 - UNSPECIFIED DEMENTIA WITHOUT BEHAVIORAL DISTURBANCE Status: Chronic Current Visit: No Qualifiers: Dementia type: associated with other underlying disease (9) Depression SNOMED Code(s): 13279274 Code(s): F32.9 - MAJOR DEPRESSIVE DISORDER, SINGLE EPISODE, UNSPECIFIED Status: Chronic Current Visit: No Qualifiers: Depression Type: major depressive disorder Major depression recurrence: recurrent Active/Remission status: in full remission Qualified Code(s): F33.42 - Major depressive disorder, recurrent, in full remission (10) Essential hypertension SNOMED Code(s): 62758026 Code(s): I10 - ESSENTIAL (PRIMARY) HYPERTENSION Status: Chronic Current Visit: No (11) GERD (gastroesophageal reflux disease) SNOMED Code(s): 977679999 Code(s): K21.9 - GASTRO-ESOPHAGEAL REFLUX DISEASE WITHOUT ESOPHAGITIS Status: Chronic Current Visit: No Qualifiers: Esophagitis presence: esophagitis presence not specified Qualified Code(s) : K21.9 - Gastro-esophageal reflux disease without esophagitis (12) YONNY (obstructive sleep apnea) SNOMED Code(s): 22511616 Code(s): G47.33 - OBSTRUCTIVE SLEEP APNEA (ADULT) (PEDIATRIC) Status: Chronic Current Visit: No (13) Obesity SNOMED Code(s): 606403985, 980940774 Code(s): E66.9 - OBESITY, UNSPECIFIED Status: Chronic Current Visit: No Qualifiers: Obesity type: due to excess calories Obesity classification: adult class 3 (BMI >= 40) (14) RLS (restless legs syndrome) SNOMED Code(s): 34333875 Code(s): G25.81 - RESTLESS LEGS SYNDROME Status: Chronic Current Visit: No - Problem List Review Problem List Initiated/Reviewed/Updated: Yes - My Orders Last 24 Hours: My Active Orders 07/15/19 08:00 predniSONE 40 mg PO WITHBREAKFAST 07/15/19 08:05 Remove Urinary Catheter [Urinary Catheter Removal] [RC] Per Unit Routine 07/15/19 19:00 Insert Roman Catheter [Insert Urinary Catheter] [OM.PC] Q24H 07/15/19 20:00 Pregabalin [Pregabalin] 150 mg PO BID 07/16/19 08:00 Furosemide [Lasix] 40 mg PO DAILY 07/16/19 09:30 VANCOMYCIN TROUGH [CHEM] Timed - Assessment Assessment:: 73 yo male admitted with sepsis presumed to be secondary to community acquired pneumonia. He is doing much better today but is not back to baseline. Labs also improved today. - Plan Plan:: #1 Sepsis - Met criteria on admission with fever and tachycardia but no longer meets criteria at this time. - Presumed secondary to CAP; however, patient has no s/s of this apart from hypoxia and wheezing on admission. CXR read as negative but is a very poor film so it is hard to tell. No GI symptoms, u/a negative, no skin concerns, and negative LP. - Overall seems more like a viral illness in the setting of his normal WBC and only mildly elevated CRP. Influenza swab was negative. - However, given severity of illness, will continue antibiotics while we await results of his cultures. Will d/c vancomycin and continue with meropenem only. - Repeat labs tomorrow. - Repeat lactate normalized after IV fluids. - Will d/c IV fluids as well and resume vs bolus PRN. - Blood and CSF cultures pending. #2 CAP #3 Hypoxia - Question of bilateral pneumonia but CXR is of low quality. Patient still unable to stand today; therefore, will plan to repeat CXR tomorrow for clarification. - Otherwise continue antibiotics as above. - Wean oxygen as able. #4 COPD with acute exacerbation - Antibiotics as above. - Will change from IV to PO steroids today given improvement. - Continue scheduled and PRN nebs. #5 DM type 2 - Hold metformin and glipizide while hospitalized. - Continue lantus. - Will check glucose QID and add low dose sliding scale with meals. #6 CKD - Creatinine is at baseline. - Will resume his lasix tomorrow given history of significant leg edema. Continue to hold metolazone. #7 Chronic Back Pain - No acute exacerbation but patient is not a very reliable historian. - If his repeat CXR is negative tomorrow and he continues to have difficulty with mobility, may need to consider CT spine. - Resume lyrica this evening. #8 Dementia - Continue home medications. #9 Depression - Continue home medications. #10 Essential Hypertension - Continue to hold losartan. Will resume if BP's become elevated. #11 GERD #12 YONNY #13 Obesity #14 RLS - Continue home medications. Patient will remain on acute today - see detailed plan under problems listed above. Anticipate he will be prepared for dismissal back to the care center in the next 1-2 days. Code status is full. Will start lovenox for VTE prophylaxis.
--- NOTE | 2019-07-15 08:26 | CR ---
[id number] RAD/RAD Chest PA or AP 1V EXAM: SINGLE VIEW CHEST. INDICATION: FEVER CHANGE IN MENTAL STATUS COMPARISON: CORRELATION IS MADE WITH THE EXAM OF DECEMBER 10, 2016 FINDINGS: There is no pneumonia or edema The right costophrenic sulcus is not imaged The cardiomediastinal contour is stable IMPRESSION: NO PNEUMONIA OR EDEMA Alexander Garcia MD 07/15/19 0824 Thank you for allowing us to participate in the care of your patient.
[2019-07-15] MEDS: Furosemide 40 MG Tab PO SCH (08:48)
[2019-07-15] MEDS: predniSONE 20 MG Tab PO SCH (08:48)
[2019-07-15] MEDS: Potassium Chloride 10 MEQ Tab.ER PO SCH ×2 (08:48→20:21)
[2019-07-15] MEDS: Pregabalin 50 MG Cap PO SCH ×2 (08:48→20:21)
[2019-07-15] MEDS: DULoxetine 60 MG Cap PO SCH (08:48)
[2019-07-15] MEDS: Insulin Lispro 100 Units/ML 3 ML Vial SUBCUT SCH ×2 (11:37→17:17)
[2019-07-15] MEDS: Enoxaparin 40 MG/0.4 ML Syringe SUBCUT SCH (11:37)
--- NOTE | 2019-07-15 15:03 | PCM.PRNOTE ---
- Free Text/Narrative Note: Lumbar puncture. Informed consent: Written and verbal informed consent were given to the patient. The risks and benefits procedure were discussed. The benefit being the diagnosis of the spinal fluid. Risks being infection, bleeding, inability to be successful, postdural puncture headache, possible nerve damage. Patient understands this and agrees to proceed. Procedure: Patient was placed in the left lateral position. The L4 vertebra was identified by using iliac crest. The spaces were marked for the L2-3, L3-4, and L4-5 interspace. L2-3 interspace was selected due to surgery at lower levels. The area was prepped with ChloraPrep in a wide manner scrubbing for approximately 2 minutes. The prep was allowed to dry completely. I donned sterile gloves in addition to my cap and mask. A sterile fenestrated drape was placed over the area. 2% lidocaine was used to infiltrate the interspace superficially and deeply. A 20-gauge introducer was passed. A 22-gauge Sprott needle was passed. Needle was unable to pass the bony prominences at this level and an additional angle was taken without success. The L3-4 level was chosen and a 22-gauge Quincke needle was used. This was used after infiltrating the area with 2% lidocaine. The needle was passed A transition was noted as the tip of the needle passed through the dura. Stylette was removed. Good CSF flow returned. CSF flow was clear. 4 tubes harinder numbers 1-4 were used and filled in numerical order. Each tube was filled to approximately 1 /2-1 mL these were handed off to the lab as they filled. The needle and introducer were removed. Pressure was applied. A Band-Aid was applied. No signs of hematoma were noted. Patient tolerated the procedure well with no untoward effects noted.
[2019-07-15] MEDS: Montelukast 10 MG Tab PO SCH (20:21)
[2019-07-15] MEDS: Donepezil 10 MG Tab PO SCH (20:21)
[2019-07-15] MEDS: atorvaSTATin 10 MG Tab PO SCH (20:21)
[2019-07-16] MEDS: Albuterol/Ipratropium 3.0-0.5 MG/3 ML Neb Soln NEB SCH ×4 (00:35→19:54)
[2019-07-16] MEDS: Meropenem 1 GM SDV IVPUSH SCH (04:51)
[2019-07-16] MEDS: Omeprazole 20 MG Cap.CR PO SCH (06:07)
[2019-07-16] MEDS: Arformoterol 15 MCG/2 ML Neb Soln INH SCH ×2 (07:04→19:54)
[2019-07-16 07:05] LABS: ANION GAP 13.9 mmol/L (10-20)
[2019-07-16] MEDS: DULoxetine 60 MG Cap PO SCH (07:51)
[2019-07-16] MEDS: Potassium Chloride 10 MEQ Tab.ER PO SCH ×2 (07:51→19:56)
[2019-07-16] MEDS: predniSONE 20 MG Tab PO SCH (07:51)
[2019-07-16] MEDS: Pregabalin 50 MG Cap PO SCH ×2 (07:51→19:56)
[2019-07-16] MEDS: Furosemide 40 MG Tab PO SCH (07:51)
--- NOTE | 2019-07-16 07:51 | PCM.PN ---
- General Info Date of Service: 07/16/19 Subjective Update: 73 yo male hospital day #3 admitted with sepsis secondary to CAP. He had an uneventful night. He denies any concerns this morning. He has not had any coughing or fever. He was complaining of some abdominal discomfort overnight but had not had a bowel movement; he then went on to have a large bowel movement this morning. He currently denies any abdominal pain. - Review of Systems General: Reports: No Symptoms HEENT: Reports: No Symptoms Pulmonary: Reports: No Symptoms Cardiovascular: Reports: No Symptoms Gastrointestinal: Reports: No Symptoms Genitourinary: Reports: No Symptoms Musculoskeletal: Reports: No Symptoms Skin: Reports: No Symptoms Neurological: Reports: No Symptoms - Patient Data Vitals - Most Recent: Last Vital Signs Temp 36.6 C 07/16/19 04:04 Pulse 90 07/16/19 04:04 Resp 18 07/16/19 04:04 BP 132/69 07/16/19 04:04 Pulse Ox 93 L 07/16/19 07:06 Weight - Most Recent: 131.202 kg I&O - Last 24 Hours: Intake & Output 07/15/19 07/16/19 07/16/19 22:59 06:59 14:59 Intake Total 100 Output Total 1000 Balance -900 Lab Results Last 24 Hours: Laboratory Results - last 24 hr 07/15/19 07/15/19 07/15/19 Range/Units 10:58 15:21 19:30 WBC (4.0-10.0) x10^3/uL RBC (4.5-6.0) x10^6/uL Hgb (14.0-18.0) g/dL Hct (40.0-52.0) % MCV (78.0-93.0) fL MCH (26.0-32.0) pg MCHC (32.0-36.0) g/dL RDW Coeff of Andrzej (10.0-15.0) % Plt Count (130-400) x10^3/uL Add Manual Diff Neutrophils % (Manual) (50-80) % Band Neutrophils % (0-6) % Lymphocytes % (Manual) (25-50) % Monocytes % (Manual) (2-11) % Eosinophils % (Manual) (0-4) % Metamyelocytes % (0) % Platelet Estimate Sodium (136-145) mmol/L Potassium (3.5-5.1) mmol/L Chloride (98-107) mmol/L Carbon Dioxide (21-32) mmol/L Anion Gap (10-20) mmol/L BUN (7-18) mg/dL Creatinine (0.70-1.30) mg/dL Est Cr Clr Drug Dosing mL/min Estimated GFR (MDRD) Glucose (74-106) mg/dL POC Glucose 282 H 294 H 299 H (74-106) mg/dL Calcium (8.5-10.1) mg/dL C-Reactive Protein (<=0.9) mg/dL 07/16/19 07/16/19 07/16/19 Range/Units 04:53 06:26 06:26 WBC 6.4 (4.0-10.0) x10^3/uL RBC 4.59 (4.5-6.0) x10^6/uL Hgb 13.0 L (14.0-18.0) g/dL Hct 39.5 L (40.0-52.0) % MCV 86.1 (78.0-93.0) fL MCH 28.3 (26.0-32.0) pg MCHC 32.9 (32.0-36.0) g/dL RDW Coeff of Andrzej 14.3 (10.0-15.0) % Plt Count 246 (130-400) x10^3/uL Add Manual Diff Yes Neutrophils % (Manual) 51 (50-80) % Band Neutrophils % 1 (0-6) % Lymphocytes % (Manual) 32 (25-50) % Monocytes % (Manual) 12 H (2-11) % Eosinophils % (Manual) 2 (0-4) % Metamyelocytes % 2 H (0) % Platelet Estimate Adequate Sodium 144 (136-145) mmol/L Potassium 3.9 (3.5-5.1) mmol/L Chloride 105 (98-107) mmol/L Carbon Dioxide 29 (21-32) mmol/L Anion Gap 13.9 (10-20) mmol/L BUN 26 H (7-18) mg/dL Creatinine 1.2 (0.70-1.30) mg/dL Est Cr Clr Drug Dosing 63.81 mL/min Estimated GFR (MDRD) 60 Glucose 247 H (74-106) mg/dL POC Glucose 282 H (74-106) mg/dL Calcium 8.3 L (8.5-10.1) mg/dL C-Reactive Protein 5.3 H (<=0.9) mg/dL Rob Results Last 24 Hours: Microbiology 07/14/19 20:52 Gram Stain - Final Cerebral Spinal Fluid CSF Culture - Preliminary NO GROWTH AFTER 2 DAYS 07/14/19 18:00 Aerobic Blood Culture - Preliminary Blood - Venous - Lab Draw NO GROWTH AFTER 1 DAY Anaerobic Blood Culture - Preliminary NO GROWTH AFTER 1 DAY 07/14/19 17:55 Aerobic Blood Culture - Preliminary Blood - Venous NO GROWTH AFTER 1 DAY Anaerobic Blood Culture - Preliminary NO GROWTH AFTER 1 DAY 07/14/19 18:48 MRSA Surveillance Culture - Final Nasal, Unspecified NO MRSA ISOLATED Med Orders - Current: Current Medications Acetaminophen (Tylenol Extra Strength) 500 mg PO Q4H PRN PRN Reason: Fever Albuterol/Ipratropium (Duoneb 3.0-0.5 Mg/3 Ml) 3 ml NEB Q2H PRN PRN Reason: Wheezing Last Admin: 07/15/19 18:10 Dose: 3 ml Albuterol/Ipratropium (Duoneb 3.0-0.5 Mg/3 Ml) 3 ml NEB Q6HRRT [facility] Last Admin: 07/16/19 07:04 Dose: 3 ml Arformoterol Tartrate (Brovana) 15 mcg INH BIDRT [facility] Last Admin: 07/16/19 07:04 Dose: 15 mcg Atorvastatin Calcium (Lipitor) 10 mg PO BEDTIME [facility] Last Admin: 07/15/19 20:21 Dose: 10 mg Donepezil HCl (Aricept) 10 mg PO BEDTIME [facility] Last Admin: 07/15/19 20:21 Dose: 10 mg Duloxetine HCl (Cymbalta) 60 mg PO DAILY [facility] Last Admin: 07/15/19 08:48 Dose: 60 mg Enoxaparin Sodium (Lovenox) 40 mg SUBCUT Q24H [facility] Last Admin: 07/15/19 11:37 Dose: 40 mg Furosemide (Lasix) 40 mg PO DAILY [facility] Last Admin: 07/15/19 08:48 Dose: 40 mg Insulin Glargine (Lantus) 10 unit SUBCUT BEDTIME [facility] Last Admin: 07/15/19 20:23 Dose: 10 units Insulin Human Lispro (Humalog) 0 unit SUBCUT TIDMEALS [facility]; Protocol Last Admin: 07/15/19 17:17 Dose: 3 unit Montelukast Sodium (Singulair) 10 mg PO BEDTIME [facility] Last Admin: 07/15/19 20:21 Dose: 10 mg Omeprazole (Omeprazole) 40 mg PO ACBREAKFAST [facility] Last Admin: 07/16/19 06:07 Dose: 40 mg Potassium Chloride (Klor-Con 10) 10 meq PO BID [facility] Last Admin: 07/15/19 20:21 Dose: 10 meq Prednisone (Prednisone) 40 mg PO WITHBREAKFAST [facility] Last Admin: 07/15/19 08:48 Dose: 40 mg Pregabalin (Lyrica) 150 mg PO BID [facility] Last Admin: 07/15/19 20:21 Dose: 150 mg Sodium Chloride (Saline Flush) 10 ml FLUSH ASDIRECTED PRN PRN Reason: Keep Vein Open Discontinued Medications Albuterol/Ipratropium (Duoneb 3.0-0.5 Mg/3 Ml) 3 ml NEB Q6H [facility] Last Admin: 07/15/19 07:14 Dose: 3 ml Ceftriaxone Sodium (Rocephin) 2 gm IVPUSH STAT ONE Stop: 07/14/19 17:51 Last Admin: 07/14/19 18:14 Dose: 2 gm Sodium Chloride (Normal Saline) 1,000 mls @ 150 mls/hr IV ASDIRECTED [facility] Last Admin: 07/15/19 00:48 Dose: 150 mls/hr Vancomycin HCl 1.25 gm/ Sodium (Chloride) 250 mls @ 200 mls/hr IV Q12H [facility] Last Admin: 07/14/19 21:38 Dose: 200 mls/hr Ibuprofen (Motrin) 400 mg PO Q8H PRN PRN Reason: Pain Insulin Glargine (Lantus) 10 unit SUBCUT DAILY [facility] Lidocaine HCl (Xylocaine-Mpf 2% (Sterile-Fareed)) Confirm Administered Dose 10 ml .ROUTE .STK-MED ONE Stop: 07/14/19 20:38 Last Admin: 07/14/19 21:39 Dose: 10 ml Lidocaine/Epinephrine (Xylocaine 1% With Epinephrine 1:100,000) 3 ml INFILT ONETIME ONE Stop: 07/14/19 20:03 Last Admin: 07/14/19 21:39 Dose: Not Given Meropenem (Merrem) 2 gm IVPUSH Q8H [facility] Last Admin: 07/16/19 04:51 Dose: 2 gm Methylprednisolone Sodium Succinate (Solu-Medrol) 40 mg IVPUSH Q12H [facility] Last Admin: 07/14/19 22:01 Dose: 40 mg - Exam General: Alert, Cooperative, No Acute Distress HEENT: Pupils Equal, Pupils Reactive, Mucous Membr. Moist/[place] Neck: Supple, Trachea Midline, No Thyromegaly. No: Lymphadenopathy Lungs: Clear to Auscultation, Normal Respiratory Effort Cardiovascular: Regular Rate, Regular Rhythm, No Murmurs GI/Abdominal Exam: Normal Bowel Sounds, Soft, Non-Tender, No Organomegaly, No Distention, No Mass Extremities: Non-Tender, No Pedal Edema, Normal Capillary Refill Peripheral Pulses: 2+: Radial (L), Radial (R) Skin: Warm, Dry, Intact Sepsis Event Note - Evaluation Sepsis Screening Result: No Definite Risk - Focused Exam Vital Signs: Vital Signs Temp Temp Pulse Resp BP Pulse Ox Pulse Ox 07/16/19 07:06 07/16/19 04:04 36.6 C 90 18 132/69 91 L 07/16/19 00:35 36.6 C 75 16 119/75 95 07/15/19 20:51 94 L 07/15/19 20:27 37.1 C 72 18 116/67 94 L Pulse Ox 07/16/19 07:06 93 L 07/16/19 04:04 07/16/19 00:35 07/15/19 20:51 07/15/19 20:27 Date Exam was Performed: 07/16/19 Time Exam was Performed: 08:40 - Problem List & Annotations (1) Sepsis SNOMED Code(s): 71079999 Code(s): A41.9 - SEPSIS, UNSPECIFIED ORGANISM Status: Acute Current Visit : Yes Qualifiers: Sepsis type: sepsis due to unspecified organism Sepsis acute organ dysfunction status: without acute organ dysfunction Qualified Code(s): A41.9 - Sepsis, unspecified organism (2) Community acquired pneumonia SNOMED Code(s): 458614868 Code(s): J18.9 - PNEUMONIA, UNSPECIFIED ORGANISM Status: Acute Priority: High Current Visit: No (3) Hypoxia SNOMED Code(s): 259044339 Code(s): R09.02 - HYPOXEMIA Status: Acute Current Visit: No Onset Date : ~12/09/16 (4) COPD (chronic obstructive pulmonary disease) SNOMED Code(s): 64987137 Code(s): J44.9 - CHRONIC OBSTRUCTIVE PULMONARY DISEASE, UNSPECIFIED Status : Acute Current Visit: No Qualifiers: COPD type: COPD with acute exacerbation Qualified Code(s): J44.1 - Chronic obstructive pulmonary disease with (acute) exacerbation (5) Diabetes SNOMED Code(s): 53010047 Code(s): E11.9 - TYPE 2 DIABETES MELLITUS WITHOUT COMPLICATIONS Status: Chronic Current Visit: No Qualifiers: Diabetes mellitus type: type 2 Diabetes mellitus exterminator insulin use: without exterminator use Diabetes mellitus complication status: without complication Qualified Code(s): E11.9 - Type 2 diabetes mellitus without complications (6) CKD (chronic kidney disease) SNOMED Code(s): 265413864 Code(s): N18.9 - CHRONIC KIDNEY DISEASE, UNSPECIFIED Status: Chronic Current Visit: Yes Qualifiers: Chronic kidney disease stage: stage 3 (moderate) Qualified Code(s): N18.3 - Chronic kidney disease, stage 3 (moderate) (7) Chronic back pain SNOMED Code(s): 831631294 Code(s): M54.9 - DORSALGIA, UNSPECIFIED; G89.29 - OTHER CHRONIC PAIN Status : Chronic Current Visit: No Qualifiers: Back pain location: low back pain Back pain laterality: unspecified Sciatica presence: unspecified whether sciatica present Qualified Code(s): M54.5 - Low back pain; G89.29 - Other chronic pain (8) Dementia SNOMED Code(s): 04508155 Code(s): F03.90 - UNSPECIFIED DEMENTIA WITHOUT BEHAVIORAL DISTURBANCE Status: Chronic Current Visit: No Qualifiers: Dementia type: associated with other underlying disease (9) Depression SNOMED Code(s): 01482259 Code(s): F32.9 - MAJOR DEPRESSIVE DISORDER, SINGLE EPISODE, UNSPECIFIED Status: Chronic Current Visit: No Qualifiers: Depression Type: major depressive disorder Major depression recurrence: recurrent Active/Remission status: in full remission Qualified Code(s): F33.42 - Major depressive disorder, recurrent, in full remission (10) Essential hypertension SNOMED Code(s): 89666267 Code(s): I10 - ESSENTIAL (PRIMARY) HYPERTENSION Status: Chronic Current Visit: No (11) GERD (gastroesophageal reflux disease) SNOMED Code(s): 271855715 Code(s): K21.9 - GASTRO-ESOPHAGEAL REFLUX DISEASE WITHOUT ESOPHAGITIS Status: Chronic Current Visit: No Qualifiers: Esophagitis presence: esophagitis presence not specified Qualified Code(s) : K21.9 - Gastro-esophageal reflux disease without esophagitis (12) YONNY (obstructive sleep apnea) SNOMED Code(s): 71046430 Code(s): G47.33 - OBSTRUCTIVE SLEEP APNEA (ADULT) (PEDIATRIC) Status: Chronic Current Visit: No (13) Obesity SNOMED Code(s): 982415693, 115014955 Code(s): E66.9 - OBESITY, UNSPECIFIED Status: Chronic Current Visit: No Qualifiers: Obesity type: due to excess calories Obesity classification: adult class 3 (BMI >= 40) (14) RLS (restless legs syndrome) SNOMED Code(s): 79879528 Code(s): G25.81 - RESTLESS LEGS SYNDROME Status: Chronic Current Visit: No - Problem List Review Problem List Initiated/Reviewed/Updated: Yes - My Orders Last 24 Hours: My Active Orders 07/15/19 08:00 predniSONE 40 mg PO WITHBREAKFAST 07/15/19 08:05 Remove Urinary Catheter [Urinary Catheter Removal] [RC] Per Unit Routine 07/15/19 08:45 Furosemide [Lasix] 40 mg PO DAILY Pregabalin [Lyrica] 150 mg PO BID 07/15/19 09:54 Chest 2V [CR] Routine 07/15/19 10:00 Enoxaparin [Lovenox] 40 mg SUBCUT Q24H 07/15/19 12:00 Insulin Lispro [HumaLOG] See Protocol SUBCUT TIDMEALS 07/15/19 19:00 Insert Roman Catheter [Insert Urinary Catheter] [OM.PC] Q24H 07/16/19 09:30 VANCOMYCIN TROUGH [CHEM] Timed - Assessment Assessment:: 73 yo male admitted with sepsis presumed to be secondary to community acquired pneumonia. He continues to improve and is nearly back to baseline. Labs also stable or improved today. - Plan Plan:: #1 Sepsis, resolved - Met criteria on admission with fever and tachycardia but no longer meets criteria at this time. - Presumed secondary to CAP; however, patient has no s/s of this apart from hypoxia and wheezing on admission. No GI symptoms, u/a negative, no skin concerns, and negative LP. - CXR read as negative on admission but is a very poor film so it is hard to tell. CXR to be repeated today for further clarification. - Overall seems more like a viral illness in the setting of his normal WBC and only mildly elevated CRP, which are stable since admission. Influenza swab was negative. - Cultures negative thus far. - Will d/c IV antibiotics. If CXR is negative still today, will do doxycycline for COPD exacerbation. If his CXR is positive, will also do cefdinir for another 5 days (note PCN allergy but he tolerated ceftriaxone without any issues ). - Repeat lactate normalized after IV fluids. - Bolus IV fluids PRN. - Blood and CSF cultures negative thus far. #2 CAP #3 Hypoxia - Question of bilateral pneumonia but CXR is of low quality. Repeat CXR pending this morning. - He has been weaned to room air. - Otherwise see plan as above. #4 COPD with acute exacerbation - Antibiotics as above. - Continue prednisone. - Continue scheduled and PRN nebs. #5 DM type 2 - Hold metformin and glipizide while hospitalized. - Continue lantus. - Continue QID glucoses with low dose sliding scale with meals. #6 CKD - Creatinine remains at baseline. - Lasix resumed this am given history of significant leg edema. Continue to hold metolazone. #7 Chronic Back Pain - No acute exacerbation but patient is not a very reliable historian. - Continue home medications. #8 Dementia - Continue home medications. #9 Depression - Continue home medications. #10 Essential Hypertension - Continue to hold losartan. Will resume if BP's become elevated. #11 GERD #12 YONNY #13 Obesity #14 RLS - Continue home medications. Patient will remain on acute today - see detailed plan under problems listed above. Anticipate he will be prepared for dismissal back to the care center tomorrow. Code status is full. Continue lovenox for VTE prophylaxis.
[2019-07-16] MEDS: Insulin Lispro 100 Units/ML 3 ML Vial SUBCUT SCH ×3 (07:57→17:16)
[2019-07-16] MEDS: Primidone 50 MG Tab PO SCH ×2 (10:07→19:55)
[2019-07-16] MEDS: Pramipexole 0.5 MG Tab PO SCH ×2 (10:07→19:56)
[2019-07-16] MEDS: Enoxaparin 40 MG/0.4 ML Syringe SUBCUT SCH (10:08)
--- NOTE | 2019-07-16 10:23 | CR ---
[id number] RAD/RAD Chest PA And Lateral EXAM: RAD Chest PA And Lateral INDICATION: FOLLOW UP POSSIBLE PNEUMONIA. COMPARISON: July 14, 2019. DISCUSSION: Improved aeration of the left lung base to the prior examination. No new areas of parenchymal opacification or other significant change. IMPRESSION: Resolution of left lung base parenchymal opacity since the prior examination. José Miguel Delcid MD 07/16/19 1022 Thank you for allowing us to participate in the care of your patient.
[2019-07-16] MEDS: Doxycycline 100 MG Cap PO SCH ×2 (10:26→19:56)
[2019-07-16] MEDS: atorvaSTATin 10 MG Tab PO SCH (19:56)
[2019-07-16] MEDS: Donepezil 10 MG Tab PO SCH (19:56)
[2019-07-16] MEDS: Montelukast 10 MG Tab PO SCH (19:56)
[2019-07-16] MEDS: Insulin Glarg,Human.Rec.Analog 100 Unit/ML SUBCUT SCH (19:56)
[2019-07-17] MEDS: Albuterol/Ipratropium 3.0-0.5 MG/3 ML Neb Soln NEB SCH ×2 (00:52→07:05)
[2019-07-17] MEDS: Omeprazole 20 MG Cap.CR PO SCH (06:38)
[2019-07-17] MEDS: Arformoterol 15 MCG/2 ML Neb Soln INH SCH (07:18)
[2019-07-17] MEDS: Doxycycline 100 MG Cap PO SCH (07:27)
[2019-07-17] MEDS: DULoxetine 60 MG Cap PO SCH (07:27)
[2019-07-17] MEDS: Potassium Chloride 10 MEQ Tab.ER PO SCH (07:27)
[2019-07-17] MEDS: Primidone 50 MG Tab PO SCH (07:27)
[2019-07-17] MEDS: predniSONE 20 MG Tab PO SCH (07:27)
[2019-07-17] MEDS: Furosemide 40 MG Tab PO SCH (07:27)
[2019-07-17] MEDS: Pregabalin 50 MG Cap PO SCH (07:28)
[2019-07-17] MEDS: Insulin Lispro 100 Units/ML 3 ML Vial SUBCUT SCH (07:28)
[2019-07-17] MEDS: Pramipexole 0.5 MG Tab PO SCH (07:28)
[2019-07-17 07:30] LABS: CHLORIDE,CL 100 mmol/L (98-107); SODIUM,NA 139 mmol/L (136-145)
--- NOTE | 2019-07-17 07:53 | PCM.DCSUM1 ---
Discharge Summary - Hospital Course Brief History: Mr. Harris is a 73 yo male who was admitted for further evaluation and management of sepsis presumed secondary to CAP after presenting to the ER for evaluation of lethargy, weakness, and fever. - Discharge Data Discharge Date: 07/17/19 Discharge Disposition: DC/Tfer to SNF 03 Condition: Good - Referral to Home Health Primary Care Physician: Marley Levi MD - Discharge Diagnosis/Problem(s) (1) Sepsis SNOMED Code(s): 73782800 ICD Code: A41.9 - SEPSIS, UNSPECIFIED ORGANISM Status: Acute Current Visit: Yes Qualifiers: Sepsis type: sepsis due to unspecified organism Sepsis acute organ dysfunction status: without acute organ dysfunction Qualified Code(s): A41.9 - Sepsis, unspecified organism (2) Community acquired pneumonia SNOMED Code(s): 576998217 ICD Code: J18.9 - PNEUMONIA, UNSPECIFIED ORGANISM Status: Acute Priority : High Current Visit: No (3) Hypoxia SNOMED Code(s): 161305689 ICD Code: R09.02 - HYPOXEMIA Status: Acute Current Visit: No Onset Date : ~12/09/16 (4) COPD (chronic obstructive pulmonary disease) SNOMED Code(s): 10027925 ICD Code: J44.9 - CHRONIC OBSTRUCTIVE PULMONARY DISEASE, UNSPECIFIED Status : Acute Current Visit: No Qualifiers: COPD type: COPD with acute exacerbation Qualified Code(s): J44.1 - Chronic obstructive pulmonary disease with (acute) exacerbation (5) Diabetes SNOMED Code(s): 70266410 ICD Code: E11.9 - TYPE 2 DIABETES MELLITUS WITHOUT COMPLICATIONS Status: Chronic Current Visit: No Qualifiers: Diabetes mellitus type: type 2 Diabetes mellitus senior care insulin use: without exterminator helper use Diabetes mellitus complication status: without complication Qualified Code(s): E11.9 - Type 2 diabetes mellitus without complications (6) CKD (chronic kidney disease) SNOMED Code(s): 987019781 ICD Code: N18.9 - CHRONIC KIDNEY DISEASE, UNSPECIFIED Status: Chronic Current Visit: Yes Qualifiers: Chronic kidney disease stage: stage 3 (moderate) Qualified Code(s): N18.3 - Chronic kidney disease, stage 3 (moderate) (7) Chronic back pain SNOMED Code(s): 056558993 ICD Code: M54.9 - DORSALGIA, UNSPECIFIED; G89.29 - OTHER CHRONIC PAIN Status: Chronic Current Visit: No Qualifiers: Back pain location: low back pain Back pain laterality: unspecified Sciatica presence: unspecified whether sciatica present Qualified Code(s): M54.5 - Low back pain; G89.29 - Other chronic pain (8) Dementia SNOMED Code(s): 23262962 ICD Code: F03.90 - UNSPECIFIED DEMENTIA WITHOUT BEHAVIORAL DISTURBANCE Status: Chronic Current Visit: No Qualifiers: Dementia type: associated with other underlying disease (9) Depression SNOMED Code(s): 44519483 ICD Code: F32.9 - MAJOR DEPRESSIVE DISORDER, SINGLE EPISODE, UNSPECIFIED Status: Chronic Current Visit: No Qualifiers: Depression Type: major depressive disorder Major depression recurrence: recurrent Active/Remission status: in full remission Qualified Code(s): F33.42 - Major depressive disorder, recurrent, in full remission (10) Essential hypertension SNOMED Code(s): 72691775 ICD Code: I10 - ESSENTIAL (PRIMARY) HYPERTENSION Status: Chronic Current Visit: No (11) GERD (gastroesophageal reflux disease) SNOMED Code(s): 901688714 ICD Code: K21.9 - GASTRO-ESOPHAGEAL REFLUX DISEASE WITHOUT ESOPHAGITIS Status: Chronic Current Visit: No Qualifiers: Esophagitis presence: esophagitis presence not specified Qualified Code(s) : K21.9 - Gastro-esophageal reflux disease without esophagitis (12) YONNY (obstructive sleep apnea) SNOMED Code(s): 92935379 ICD Code: G47.33 - OBSTRUCTIVE SLEEP APNEA (ADULT) (PEDIATRIC) Status: Chronic Current Visit: No (13) Obesity SNOMED Code(s): 881012360, 760789112 ICD Code: E66.9 - OBESITY, UNSPECIFIED Status: Chronic Current Visit: No Qualifiers: Obesity type: due to excess calories Obesity classification: adult class 3 (BMI >= 40) (14) RLS (restless legs syndrome) SNOMED Code(s): 27766571 ICD Code: G25.81 - RESTLESS LEGS SYNDROME Status: Chronic Current Visit: No - Patient Summary/Data Operative Procedure(s) Performed: none Complications: none Consults: none Labs Pending at D/C: none Recommended Follow-up Testing/Procedures: none Planned Operative Procedure(s) after DC: none Hospital Course: The patient was admitted and given IV antibiotics as well as IV fluids. An LP was performed to rule out meningitis and was negative. At that time, he was also started on methylprednisolone and scheduled/PRN neb treatments due to significant wheezing noted on exam. By the morning after admission, he had already improved significantly and was more alert. Therefore, his antibiotic regimen was narrowed to meropenem and he was transitioned to oral prednisone. On hospital day #3, he was noted to be further improved and labs (WBC, CRP) remained within normal limits/slightly elevated. He had also been afebrile since admission. Therefore, he was transitioned to oral doxycycline. His IV fluids had been stopped the morning after admission and he has been eating and drinking well since. He has had no issues since transitioning to oral antibiotics. He has remained afebrile since admission and is doing well. LP and blood cultures showing no growth to date. His hospitalization was otherwise uncomplicated. He will be discharged to finish the course of antibiotics and steroids. He will follow-up in clinic next week. - Patient Instructions Diet: Diabetic Diet Activity: As Tolerated Driving: Do Not Drive Showering/Bathing: May Shower Notify Provider of: Fever - Discharge Plan *PRESCRIPTION DRUG MONITORING PROGRAM REVIEWED*: No *COPY OF PRESCRIPTION DRUG MONITORING REPORT IN PATIENT JOSSIE: No Prescriptions/Med Rec: Doxycycline [Vibramycin] 100 mg PO BID #3 cap predniSONE 40 mg PO WITHBREAKFAST #1 tablet Home Medications: Home Meds Montelukast [Singulair] 10 mg PO BEDTIME 12/09/16 [History] Pramipexole [Mirapex] 1 mg PO BID 12/09/16 [History] Primidone 250 mg PO BID 12/09/16 [History] DULoxetine [Cymbalta] 60 mg PO DAILY 03/17/19 [History] Donepezil HCl [Aricept] 10 mg PO BEDTIME 03/17/19 [History] Formoterol Fumarate [Perforomist] 20 mcg NEB BID 03/17/19 [History] Furosemide 40 mg PO DAILY 03/17/19 [History] Grape Seed Extract [Grape Seed] 100 mg PO DAILY 03/17/19 [History] Ibuprofen 800 mg PO Q8H PRN 03/17/19 [History] Ketoconazole [Nizoral 2% Shampoo] 1 applic TOP TUFR@10 03/17/19 [History] Nystatin [Nystatin Crm] 1 applic TOP BID 03/17/19 [History] Omeprazole 40 mg PO DAILY 03/17/19 [History] Potassium Chloride 10 meq PO BID 03/17/19 [History] Pregabalin 150 mg PO BID 03/17/19 [History] atorvaSTATin [Lipitor] 10 mg PO BEDTIME 03/17/19 [History] glipiZIDE [Glipizide ER] 10 mg PO DAILY 03/17/19 [History] metFORMIN HCl [Metformin HCl] 1,000 mg PO BID 03/17/19 [History] Insulin Degludec [Tresiba] 10 units SUBCUT DAILY 07/14/19 [History] Albuterol/Ipratropium [DuoNeb 3.0-0.5 MG/3 ML] 3 ml NEB BID 07/15/19 [History] Doxycycline [Vibramycin] 100 mg PO BID #3 cap 07/17/19 [Rx] predniSONE 40 mg PO WITHBREAKFAST #1 tablet 07/17/19 [Rx] Forms: ED Department Discharge Referrals: Marley Levi MD [Primary Care Provider] - - Discharge Summary/Plan Comment DC Time >30 min.: No - General Info Date of Service: 07/17/19 Subjective Update: Patient is doing well this morning. He would like to be discharged in time to celebrate his birthday. He denies any complaints this morning. He has been up and walking with assistance. - Review of Systems General: Reports: No Symptoms HEENT: Reports: No Symptoms Pulmonary: Reports: No Symptoms Cardiovascular: Reports: No Symptoms Gastrointestinal: Reports: No Symptoms Genitourinary: Reports: No Symptoms Musculoskeletal: Reports: No Symptoms Skin: Reports: No Symptoms Neurological: Reports: No Symptoms - Patient Data Vitals - Most Recent: Last Vital Signs Temp 36.6 C 07/17/19 05:17 Pulse 66 07/17/19 05:17 Resp 16 07/17/19 05:17 BP 130/68 07/17/19 05:17 Pulse Ox 90 L 07/17/19 05:17 Weight - Most Recent: 131.202 kg Lab Results - Last 24 hrs: Laboratory Results - last 24 hr 07/16/19 07/16/19 07/16/19 Range/Units 09:44 11:03 17:08 WBC (4.0-10.0) x10^3/uL RBC (4.5-6.0) x10^6/uL Hgb (14.0-18.0) g/dL Hct (40.0-52.0) % MCV (78.0-93.0) fL MCH (26.0-32.0) pg MCHC (32.0-36.0) g/dL RDW Coeff of Andrzej (10.0-15.0) % Plt Count (130-400) x10^3/uL Add Manual Diff Neutrophils % (Manual) (50-80) % Band Neutrophils % (0-6) % Lymphocytes % (Manual) (25-50) % Monocytes % (Manual) (2-11) % Eosinophils % (Manual) (0-4) % Basophils % (Manual) (0-1) % Metamyelocytes % (0) % Platelet Estimate Sodium (136-145) mmol/L Potassium (3.5-5.1) mmol/L Chloride (98-107) mmol/L Carbon Dioxide (21-32) mmol/L Anion Gap (10-20) mmol/L BUN (7-18) mg/dL Creatinine (0.70-1.30) mg/dL Est Cr Clr Drug Dosing mL/min Estimated GFR (MDRD) Glucose (74-106) mg/dL POC Glucose 392 H 363 H (74-106) mg/dL Calcium (8.5-10.1) mg/dL Vancomycin Trough 2.1 L (10.0-20.0) ug/mL 07/16/19 07/17/19 07/17/19 Range/Units 19:55 05:08 06:57 WBC 7.6 (4.0-10.0) x10^3/uL RBC 4.70 (4.5-6.0) x10^6/uL Hgb 13.3 L (14.0-18.0) g/dL Hct 40.0 (40.0-52.0) % MCV 85.1 (78.0-93.0) fL MCH 28.3 (26.0-32.0) pg MCHC 33.3 (32.0-36.0) g/dL RDW Coeff of Andrzej 14.2 (10.0-15.0) % Plt Count 246 (130-400) x10^3/uL Add Manual Diff Yes Neutrophils % (Manual) 54 (50-80) % Band Neutrophils % 3 (0-6) % Lymphocytes % (Manual) 30 (25-50) % Monocytes % (Manual) 6 (2-11) % Eosinophils % (Manual) 5 H (0-4) % Basophils % (Manual) 1 (0-1) % Metamyelocytes % 1 H (0) % Platelet Estimate Adequate Sodium (136-145) mmol/L Potassium (3.5-5.1) mmol/L Chloride (98-107) mmol/L Carbon Dioxide (21-32) mmol/L Anion Gap (10-20) mmol/L BUN (7-18) mg/dL Creatinine (0.70-1.30) mg/dL Est Cr Clr Drug Dosing mL/min Estimated GFR (MDRD) Glucose (74-106) mg/dL POC Glucose 381 H 197 H (74-106) mg/dL Calcium (8.5-10.1) mg/dL Vancomycin Trough (10.0-20.0) ug/mL 07/17/19 Range/Units 06:57 WBC (4.0-10.0) x10^3/uL RBC (4.5-6.0) x10^6/uL Hgb (14.0-18.0) g/dL Hct (40.0-52.0) % MCV (78.0-93.0) fL MCH (26.0-32.0) pg MCHC (32.0-36.0) g/dL RDW Coeff of Andrzej (10.0-15.0) % Plt Count (130-400) x10^3/uL Add Manual Diff Neutrophils % (Manual) (50-80) % Band Neutrophils % (0-6) % Lymphocytes % (Manual) (25-50) % Monocytes % (Manual) (2-11) % Eosinophils % (Manual) (0-4) % Basophils % (Manual) (0-1) % Metamyelocytes % (0) % Platelet Estimate Sodium 139 (136-145) mmol/L Potassium 4.0 (3.5-5.1) mmol/L Chloride 100 (98-107) mmol/L Carbon Dioxide 28 (21-32) mmol/L Anion Gap 15.0 (10-20) mmol/L BUN 22 H (7-18) mg/dL Creatinine 1.0 (0.70-1.30) mg/dL Est Cr Clr Drug Dosing 76.57 mL/min Estimated GFR (MDRD) > 60 Glucose 199 H (74-106) mg/dL POC Glucose (74-106) mg/dL Calcium 8.7 (8.5-10.1) mg/dL Vancomycin Trough (10.0-20.0) ug/mL [facility] Results - Last 24 hrs: Microbiology 07/14/19 18:00 Aerobic Blood Culture - Preliminary Blood - Venous - Lab Draw NO GROWTH AFTER 2 DAYS Anaerobic Blood Culture - Preliminary NO GROWTH AFTER 2 DAYS 07/14/19 17:55 Aerobic Blood Culture - Preliminary Blood - Venous NO GROWTH AFTER 2 DAYS Anaerobic Blood Culture - Preliminary NO GROWTH AFTER 2 DAYS 07/14/19 20:52 Gram Stain - Final Cerebral Spinal Fluid CSF Culture - Preliminary NO GROWTH AFTER 2 DAYS Med Orders - Current: Current Medications Acetaminophen (Tylenol Extra Strength) 500 mg PO Q4H PRN PRN Reason: Fever Albuterol/Ipratropium (Duoneb 3.0-0.5 Mg/3 Ml) 3 ml NEB Q2H PRN PRN Reason: Wheezing Last Admin: 07/15/19 18:10 Dose: 3 ml Albuterol/Ipratropium (Duoneb 3.0-0.5 Mg/3 Ml) 3 ml NEB Q6HRRT [facility] Last Admin: 07/17/19 07:05 Dose: 3 ml Arformoterol Tartrate (Brovana) 15 mcg INH BIDRT [facility] Last Admin: 07/17/19 07:18 Dose: 15 mcg Atorvastatin Calcium (Lipitor) 10 mg PO BEDTIME [facility] Last Admin: 07/16/19 19:56 Dose: 10 mg Donepezil HCl (Aricept) 10 mg PO BEDTIME [facility] Last Admin: 07/16/19 19:56 Dose: 10 mg Doxycycline Hyclate (Vibramycin) 100 mg PO BID [facility] Last Admin: 07/17/19 07:27 Dose: 100 mg Duloxetine HCl (Cymbalta) 60 mg PO DAILY [facility] Last Admin: 07/17/19 07:27 Dose: 60 mg Enoxaparin Sodium (Lovenox) 40 mg SUBCUT Q24H [facility] Last Admin: 07/16/19 10:08 Dose: 40 mg Furosemide (Lasix) 40 mg PO DAILY [facility] Last Admin: 07/17/19 07:27 Dose: 40 mg Insulin Glargine (Lantus) 10 unit SUBCUT BEDTIME [facility] Last Admin: 07/16/19 19:56 Dose: 10 units Insulin Human Lispro (Humalog) 0 unit SUBCUT TIDMEALS [facility]; Protocol Last Admin: 07/17/19 07:28 Dose: 3 unit Montelukast Sodium (Singulair) 10 mg PO BEDTIME [facility] Last Admin: 07/16/19 19:56 Dose: 10 mg Omeprazole (Omeprazole) 40 mg PO ACBREAKFAST [facility] Last Admin: 07/17/19 06:38 Dose: 40 mg Potassium Chloride (Klor-Con 10) 10 meq PO BID [facility] Last Admin: 07/17/19 07:27 Dose: 10 meq Pramipexole Dihydrochloride (Mirapex) 1 mg PO BID [facility] Last Admin: 07/17/19 07:28 Dose: 1 mg Prednisone (Prednisone) 40 mg PO WITHBREAKFAST [facility] Last Admin: 07/17/19 07:27 Dose: 40 mg Pregabalin (Lyrica) 150 mg PO BID [facility] Last Admin: 07/17/19 07:28 Dose: 150 mg Primidone (Mysoline) 250 mg PO BID [facility] Last Admin: 07/17/19 07:27 Dose: 250 mg Sodium Chloride (Saline Flush) 10 ml FLUSH ASDIRECTED PRN PRN Reason: Keep Vein Open Discontinued Medications Albuterol/Ipratropium (Duoneb 3.0-0.5 Mg/3 Ml) 3 ml NEB Q6H [facility] Last Admin: 07/15/19 07:14 Dose: 3 ml Ceftriaxone Sodium (Rocephin) 2 gm IVPUSH STAT ONE Stop: 07/14/19 17:51 Last Admin: 07/14/19 18:14 Dose: 2 gm Sodium Chloride (Normal Saline) 1,000 mls @ 150 mls/hr IV ASDIRECTED [facility] Last Admin: 07/15/19 00:48 Dose: 150 mls/hr Vancomycin HCl 1.25 gm/ Sodium (Chloride) 250 mls @ 200 mls/hr IV Q12H [facility] Last Admin: 07/14/19 21:38 Dose: 200 mls/hr Ibuprofen (Motrin) 400 mg PO Q8H PRN PRN Reason: Pain Insulin Glargine (Lantus) 10 unit SUBCUT DAILY [facility] Lidocaine HCl (Xylocaine-Mpf 2% (Sterile-Fareed)) Confirm Administered Dose 10 ml .ROUTE .STK-MED ONE Stop: 07/14/19 20:38 Last Admin: 07/14/19 21:39 Dose: 10 ml Lidocaine/Epinephrine (Xylocaine 1% With Epinephrine 1:100,000) 3 ml INFILT ONETIME ONE Stop: 07/14/19 20:03 Last Admin: 07/14/19 21:39 Dose: Not Given Meropenem (Merrem) 2 gm IVPUSH Q8H [facility] Last Admin: 07/16/19 04:51 Dose: 2 gm Methylprednisolone Sodium Succinate (Solu-Medrol) 40 mg IVPUSH Q12H [facility] Last Admin: 07/14/19 22:01 Dose: 40 mg - Exam General: Reports: Alert, Cooperative, No Acute Distress HEENT: Reports: Mucous Membr. Moist/[place] Neck: Reports: Supple, Trachea Midline, No Thyromegaly. Denies: Lymphadenopathy Lungs: Reports: Clear to Auscultation, Normal Respiratory Effort Cardiovascular: Reports: Regular Rate, Regular Rhythm, No Murmurs GI/Abdominal Exam: Normal Bowel Sounds, Soft, Non-Tender, No Organomegaly, No Distention, No Mass Extremities: Non-Tender, No Pedal Edema, Normal Capillary Refill Skin: Reports: Warm, Dry, Intact
[2019-07-17 09:53] VITALS: BP 117/70; PULSE 65
== END 2019-07-17 10:14 | DRG 871 ==
LOC: VM.ED 17:25 → VM.MS 18:08
PROVIDERS: ADMIT Internal Medicine; ATTEND Family Medicine
PROC: 00JU3ZZ Inspection of Spinal Canal, Percutaneous Approach (ICD-10-PCS; principal; 2019-07-15)
DX: A41.9 Sepsis, unspecified organism (principal); H54.7 Unspecified visual loss; I10 Essential (primary) hypertension; J18.9 Pneumonia, unspecified organism; N18.3 Chronic kidney disease, stage 3 (moderate); R32 Unspecified urinary incontinence; G89.29 Other chronic pain; M54.5 Low back pain; Z86.61 Personal history of infections of the central nervous system; F03.90 Unspecified dementia, unspecified severity, without behavioral disturbance, psychotic disturbance, mood disturbance, and anxiety; F32.9 Major depressive disorder, single episode, unspecified; E11.9 Type 2 diabetes mellitus without complications; E11.22 Type 2 diabetes mellitus with diabetic chronic kidney disease; Z98.49 Cataract extraction status, unspecified eye; Z90.49 Acquired absence of other specified parts of digestive tract; Z96.649 Presence of unspecified artificial hip joint; F33.42 Major depressive disorder, recurrent, in full remission; K21.9 Gastro-esophageal reflux disease without esophagitis; G47.33 Obstructive sleep apnea (adult) (pediatric); Z79.899 Other long term (current) drug therapy; E66.9 Obesity, unspecified; G25.81 Restless legs syndrome; I12.9 Hypertensive chronic kidney disease with stage 1 through stage 4 chronic kidney disease, or unspecified chronic kidney disease; J43.9 Emphysema, unspecified; M19.90 Unspecified osteoarthritis, unspecified site; Z87.891 Personal history of nicotine dependence; Z88.0 Allergy status to penicillin; Z79.4 Long term (current) use of insulin; Z68.38 Body mass index [BMI] 38.0-38.9, adult
CPT/HCPCS: 36415; 51702; 71045; 71046; 80048; 80053; 80202; 81001; 82803; 82945; 82962; 83605; 83735; 83880; 84157; 84443; 84484; 85025; 85610; 86140; 87040; 87070; 87205; 87804; 87804-59; 89050; 93005; 94640; 94760; 99284-GF; 99285-25; A9270-GY; J0696; J1650; J1815; J1815-GY; J2001; J2185; J2920; J3370; J7030; J7050; J7620-GY